=== PATIENT | male | born 1985 | race African-American/Black ===

== ENCOUNTER 2017-01-29 23:26 | Emergency (ER) | payer OTHER ==
[2017-01-30 00:17] VITALS: BP 148/81; PULSE 97; TEMP 98.7; BMI 33.0
[2017-01-30] MEDS ORDERED: SODIUM CHLORIDE 1,000 ML IV STA (00:37)
[2017-01-30 01:52] LABS: BASOPHIL 0.9 % (0-2.0); EOSINOPHIL 5.3 % (0-4.5); MCHC 33.1 g/dl (32.0-35.9); MEAN CELL VOLUME 84.7 fl (80-96); NEUTROPHILS 61.1 % (42.8-82.8); PLATELET COUNT 224 K/MM3 (134-434); RDW 14.7 % (11.9-15.9); WHITE BLOOD COUNT 8.6 K/mm3 (4.0-10.0)
[2017-01-30] MEDS ORDERED: HALOPERIDOL LACTATE 5 MG/ML IM ONE (02:27)
[2017-01-30 02:36] LABS: ALBUMIN 3.1 g/dl (3.4-5.0); ALK PHOS 99 U/L (45-117); ANION GAP 7 (8-16); CALCIUM 8.8 mg/dL (8.5-10.1); CO2 28 mmol/L (21-32); GLUCOSE,RANDOM 119 mg/dL (74-106); SGPT/ALT 40 U/L (12-78); TOT PROT 6.5 g/dl (6.4-8.2)
[2017-01-30 02:37] LABS: BILIRUBIN,TOTAL < 0.1 mg/dL (0.2-1.0)
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
[2017-01-30 02:39] LABS: SGOT/AST 56 U/L (15-37)
[2017-01-30] MEDS ORDERED: HALOPERIDOL LACTATE 5 MG/ML ONE (03:50)
[2017-01-30] MEDS ORDERED: LORazepam 2 MG/ML SDV VIAL ONE (04:08)
== END 2017-01-30 07:59 | disposition home or self-care (01) ==
LOC: JER 23:26
PROC: 3E0337Z Introduction of Electrolytic and Water Balance Substance into Peripheral Vein, Percutaneous Approach (ICD-10-PCS; principal; 2017-01-29)
PROC: 3E023GC Introduction of Other Therapeutic Substance into Muscle, Percutaneous Approach (ICD-10-PCS; 2017-01-29)
PROC: 3E023GC Introduction of Other Therapeutic Substance into Muscle, Percutaneous Approach (ICD-10-PCS; 2017-01-29)
PROC: 3E023NZ Introduction of Analgesics, Hypnotics, Sedatives into Muscle, Percutaneous Approach (ICD-10-PCS; 2017-01-29)
DX: F16.10 Hallucinogen abuse, uncomplicated (principal); F17.210 Nicotine dependence, cigarettes, uncomplicated
CPT/HCPCS: 36415; 80053; 85025; 96360; 96372; 99283-25

== ENCOUNTER 2017-04-28 00:06 | Emergency (ER) | payer OTHER ==
[2017-04-28 00:36] VITALS: BMI 33.4
[2017-04-28] MEDS ORDERED: FOLIC ACID INJECTION - 1 MG, THIAMINE HCL 100 MG, MULTIVIT INJECTION ADULT 10 ML in SOD... IVPB ONE (01:02)
--- NOTE | 2017-04-28 01:07 | PDOC ---
Attending Attestation - Resident Resident Name: Kendell Hunter - ED Attending Attestation I have performed the following: I have examined & evaluated the patient, The case was reviewed & discussed with the resident, I agree w/resident's findings & plan, Exceptions are as noted - HPI HPI: 04/28/17 01:02 31-year-old male no known past medical history here from [facility] for a reported overdose. Patient was found the waiting room at [facility] had reportedly used PCP however was found to be somnolent and altered sent to the ED for evaluation. Patient is sleepy here and unable to provide any further history - Physicial Exam PE: 04/28/17 01:06 Patient is sleeping comfortably pupils are pinpoint bilaterally but reactive face is noted for a right pena granulating ulcer like tissue approximately 1 cm x 1 cm with some purulence no surrounding erythema or redness lungs are clear bilaterally heart is regular without any murmurs rubs or gallops abdomen is soft nontender extremities are warm well perfused and atraumatic - Medical Decision Making 04/28/17 01:08 31-year-old male status post unknown overdose differential includes opiate overdose intracranial pathology electrolyte abnormality combined intoxication plan tox screen alcohol level EKG CT head and chest x-ray will reassess patient is more awake and alert
[2017-04-28 01:34] LABS: BASO % 0.9 % (0-2.0); EOS % 4.5 % (0-4.5); MCH 27.8 pg (25.7-33.7); MCHC 32.6 g/dl (32.0-35.9); MEAN CELL VOLUME 85.3 fl (80-96); MEAN PLT VOLUME 10.2 fl (7.5-11.1); NEUT % 59.3 % (42.8-82.8); PLATELET COUNT 232 K/MM3 (134-434); RDW 14.2 % (11.9-15.9); WHITE BLOOD COUNT 9.7 K/mm3 (4.0-10.0)
[2017-04-28 02:05] LABS: ALBUMIN 3.3 g/dl (3.4-5.0); ANION GAP 9 (8-16); BILIRUBIN,TOTAL 0.3 mg/dL (0.2-1.0); CO2 30 mmol/L (21-32); GLUCOSE,RANDOM 89 mg/dL (74-106); SGOT/AST 48 U/L (15-37); SGPT/ALT 46 U/L (12-78); TOT PROT 7.2 g/dl (6.4-8.2)
[2017-04-28 02:06] LABS: ALK PHOS 86 U/L (45-117)
--- NOTE | 2017-04-28 03:40 | PDOC ---
History of Present Illness - General Chief Complaint: Overdose Stated Complaint: OVERDOSE Time Seen by Provider: 04/28/17 00:30 History Source: Patient Exam Limitations: No Limitations - History of Present Illness Initial Comments: 04/28/17 06:29 31M with pmh of PCP and benzodiazepine abuse sent from [facility] "for eval of change in ms/oversedation. responding to pain stimuli .upon initial arrival states using pcp. tox + pcp, tca, thc, benzo" Patient completely lethargic on arrive, pinpoint pupils, no signs of trauma, cardiovascularly stable, normal RR. Past History - Past Medical History Allergies/Adverse Reactions: Allergies Allergy/AdvReac Type Severity Reaction Status Date / Time No Known Allergies Allergy Verified 01/29/17 23:54 Home Medications: Ambulatory Orders NK [No Known Home Medication] 01/30/17 - Immunization History Td Vaccination: Yes Immunization Up to Date: Yes - Suicide/Smoking/Psychosocial Hx Smoking Status: Yes Smoking History: Unknown if ever smoked Have you smoked in the past 12 months: Yes Number of Cigarettes Smoked Daily: 5 Hx Alcohol Use: (unknown) Drug/Substance Use Hx: (PCP) Substance Use Type: None Review of Systems - Review of Systems Able to Perform ROS?: No (lethargic) *Physical Exam - Vital Signs Last Vital Signs Temp Pulse Resp BP Pulse Ox 98.4 F 89 18 148/107 93 L 04/28/17 00:32 04/28/17 00:32 04/28/17 00:32 04/28/17 00:32 04/28/17 00:32 - Physical Exam General Appearance: Yes: Intoxicated HEENT: positive: Other (pinpoint pupils, reactive to light) Neck: positive: Other (5cm zone under the chin of exposed dermis, folliculitis) Respiratory/Chest: positive: Lungs Clear, Normal Breath Sounds. negative: Chest Tender, Respiratory Distress, Rapid RR Cardiovascular: positive: Regular Rhythm, Regular Rate Gastrointestinal/Abdominal: positive: Normal Bowel Sounds. negative: Flat Musculoskeletal: positive: Normal Inspection Extremity: positive: Normal Capillary Refill, Normal Inspection Integumentary: positive: Normal Color Neurologic: negative: Fully Oriented, Alert, Normal Mood/Affect, Normal Response ED Treatment Course - LABORATORY CBC & Chemistry Diagram: 04/28/17 01:00 04/28/17 01:00 - ADDITIONAL ORDERS Additional order review: Laboratory Results 04/28/17 01:00 Sodium 140 Potassium 3.8 Chloride 101 Carbon Dioxide 30 Anion Gap 9 BUN 13 Creatinine 1.0 Creat Clearance w eGFR > 60 Random Glucose 89 D Calcium 9.0 Total Bilirubin 0.3 D AST 48 H ALT 46 Alkaline Phosphatase 86 Total Protein 7.2 Albumin 3.3 L 04/28/17 01:00 RBC 4.68 MCV 85.3 MCHC 32.6 RDW 14.2 MPV 10.2 D Neutrophils % 59.3 Lymphocytes % 26.6 Monocytes % 8.7 Eosinophils % 4.5 Basophils % 0.9 Medical Decision Making - Medical Decision Making 04/28/17 06:56 31M sent to the ED from [facility] for overdose. Labs and urine tox sent. Urine positive for cannabis, benzos and PCP. Patient woke up during straight catheter insertion. Seemingly fine, not slurring his speech, able to ambulate normally and asking for wound care of his chin. Claims he does pcp and snaps out of it all the time. Patient eloped. *DC/Admit/Observation/Transfer Diagnosis at time of Disposition: Overdose - Discharge Dispostion Disposition: ELOPED Condition at time of disposition: Improved - Referrals - Patient Instructions - Post Discharge Activity
[2017-04-28 05:07] VITALS: BP 110/73; PULSE 80; TEMP 98.7
[2017-04-28 05:10] LABS: URINE APPEARANCE CLEAR; URINE BILIRUBIN NEGATIVE (NEGATIVE); URINE BLOOD NEGATIVE (NEGATIVE); URINE COLOR YELLOW; URINE GLUCOSE (UA) NEGATIVE (NEGATIVE); URINE KETONE NEGATIVE (NEGATIVE); URINE LEUK ESTERASE NEGATIVE (NEGATIVE); URINE NITRITE NEGATIVE (NEGATIVE); URINE UROBILINOGEN 4.0 E.U/dl mg/dL (0.2-1.0)
[2017-04-28 05:11] LABS: URINE PROTEIN 1+ (NEGATIVE)
[2017-04-28 05:17] LABS: URINE MUCUS RARE; URINE RBC <1 /hpf (0-3); URINE WBC 2 /hpf (3-5)
[2017-04-28] MEDS ORDERED: CEPHALEXIN MONOHYDRATE 250 MG CAPSULE (FP) PO ONE (05:19)
[2017-04-28 05:22] LABS: URINE MARIJUANA THC POSITIVE ng/ml (CUTOFF=50)
[2017-04-28] MEDS ORDERED: CEPHALEXIN MONOHYDRATE 250 MG CAPSULE (FP) ONE (05:41)
[2017-04-28 11:38] LABS: URINE LEUK ESTERASE Negative (NEGATIVE)
--- NOTE | 2017-05-04 13:24 | EKG ---
Test Reason : Blood Pressure : / mmHG Vent. Rate : 088 BPM Atrial Rate : 088 BPM P-R Int : 166 ms QRS Dur : 090 ms QT Int : 404 ms P-R-T Axes : 053 018 039 degrees QTc Int : 488 ms POOR DATA QUALITY, INTERPRETATION MAY BE ADVERSELY AFFECTED NORMAL SINUS RHYTHM POSSIBLE LEFT ATRIAL ENLARGEMENT PROLONGED QT ABNORMAL ECG NO PREVIOUS ECGS AVAILABLE Confirmed by GINETTE DINH, TAM ([id number]) on 05/04/2017 1:24:04 PM Referred By: Confirmed By:TAM PENG MD
== END 2017-04-28 06:00 | disposition left against medical advice (07) ==
LOC: JER 00:06
DX: F16.10 Hallucinogen abuse, uncomplicated (principal); F12.10 Cannabis abuse, uncomplicated; F13.10 Sedative, hypnotic or anxiolytic abuse, uncomplicated
CPT/HCPCS: 36415; 70450-TC; 80053; 80307; 81003; 81015; 85025; 93005; 93010; 99283-25

== ENCOUNTER 2020-01-09 11:14 | Emergency (ER) | payer OTHER ==
[2020-01-09 11:38] VITALS: BMI 33.4
--- NOTE | 2020-01-09 12:39 | PDOC ---
History of Present Illness - General Chief Complaint: Pain Stated Complaint: SWOLLEN TESTICLES Time Seen by Provider: 01/09/20 11:56 History Source: Patient - History of Present Illness Timing/Duration: other Past History - Medical History Allergies/Adverse Reactions: Allergies Allergy/AdvReac Type Severity Reaction Status Date / Time No Known Allergies Allergy Verified 01/29/17 23:54 Home Medications: Ambulatory Orders NK [No Known Home Medication] 01/30/17 COPD: No - Immunization History Td Vaccination: Yes Immunization Up to Date: Yes - Psycho-Social/Smoking History Smoking Status: Yes Smoking History: Never smoked Have you smoked in the past 12 months: Yes Number of Cigarettes Smoked Daily: 5 Information on smoking cessation initiated: No - Substance Abuse Hx (Audit-C & DAST Scrn) How often the patient has a drink containing alcohol: Never Score: In Men: 4 or > Positive; In Women: 3 or > Positive: 0 Screen Result (Pos requires Nsg. Audit-10AR): Negative In the last yr the pt used illegal drug/Rx for NonMed reason: No Score: Yes response is considered Positive: 0 Screen Result (Positive result requires Nsg. DAST-10): Negative Review of Systems - Review of Systems Constitutional: No: Chills, Fever Respiratory: No: Cough, Shortness of Breath, Wheezing Cardiac (ROS): No: Chest Pain ABD/GI: No: Nausea, Vomiting, Abdominal cramping : No: Dysuria, Flank Pain, Hematuria *Physical Exam - Vital Signs Last Vital Signs Temp Pulse Resp BP Pulse Ox 97.8 F 95 H 17 150/72 99 01/09/20 11:34 01/09/20 11:34 01/09/20 11:34 01/09/20 11:34 01/09/20 11:34 - Physical Exam General Appearance: Yes: Appropriately Dressed. No: Apparent Distress HEENT: positive: Normal Voice Neck: positive: Supple Respiratory/Chest: positive: Lungs Clear, Normal Breath Sounds. negative: Respiratory Distress Cardiovascular: positive: Regular Rate, S1, S2 Gastrointestinal/Abdominal: positive: Soft. negative: Tender Extremity: positive: Pedal Edema (3+ edema to b/l LE that extends to testes) Integumentary: positive: Dry, Warm Neurologic: positive: Fully Oriented, Alert, Normal Mood/Affect ED Treatment Course - LABORATORY CBC & Chemistry Diagram: 01/09/20 13:00 01/09/20 13:00 Medical Decision Making - Medical Decision Making 01/09/20 12:32 34 yo M, h/o polysubstance abuse, HTN, hyperthyroid on methimazole, on eliquis but not certain why he is on meds, here w/ edema to b/l LE and testicles. Pt states he was admitted to [facility] several days ago for palpitations related to his hyperthyroid. States he did have lower extremity swelling while hospitalized but not as severe and was being treated with IV lasix. States he had no testicular swelling at the time. Patient states he left AMA yesterday because he had a court date. States he is currently taking metoprolol, methimazo le, lasix and eliquis. Denies any chest pain, SOB, cough, nausea, vomiting fever or chills. Per staff at [facility], patient presented to their ER with palpitations and chest tightness and found to be in A.fib. Patient was admitted to the ICU for thyroid storm but per ICU staff, patient never came on to the floor as patient left AMA from the ER. No echo was performed prior to patient signing out. Per staff patient has a history of poor compliance see exam S/p admission for thyroid storm at [facility] after presenting with chest pain and palpitation and found to be in new onset A.fib and started on lasix for bilateral lower extremity edema, left AMA yesterday and now here with worsening edema that has since extended to the thigh and now includes testicle Currently on eliquis, methimazole and BB but compliance an issue No cards/resp sxs at this time Pt stable w/ 3+ pitting edema to b/l LE that extends to testicles which is markedly swollen -ekg -labs -cxr -IV lasix -anticipate admission 01/09/20 13:41 Concern for thyroid storm at this time given TSH of 0.01 with rapid A. fib to 131 and anasarca, free T4 pending. HR since improved with IV and p.o. Cardizem. Given IV lasix. Will treat for storm w/ BB if HR increases, methimazole and steroids as/w Dr Wu. Will also get ultrasound of scrotum at this time given worsening swelling while in ED. Patient signed out to KARUNA Hollins pending further work-up and management, to also get endocrine consult and arrange admission. Discharge - Discharge Information Problems reviewed: Yes Clinical Impression/Diagnosis: H/O hyperthyroidism, Anasarca Afib Qualifiers: Atrial fibrillation type: unspecified Qualified Code(s): I48.91 - Unspecified atrial fibrillation Thyroid storm Qualifiers: Thyrotoxicosis type: other Qualified Code(s): E05.81 - Other thyrotoxicosis with thyrotoxic crisis or storm CHF (congestive heart failure) Qualifiers: Heart failure type: other Qualified Code(s): I50.9 - Heart failure, unspecified Condition: Fair Disposition: TRANSFER ACUTE CARE/OTHER HOSP - Admission Yes - Follow up/Referral - Patient Discharge Instructions - Post Discharge Activity
[2020-01-09 13:20] LABS: BASO % 0.4 % (0-2.0); EOS % 2.9 % (0-4.5); HEMATOCRIT 40.1 % (35.4-49); HEMOGLOBIN 12.8 GM/dL (11.7-16.9); LYMPH % 29.9 % (8-40); MCH 25.3 pg (25.7-33.7); MONO % 16.8 % (3.8-10.2); PLATELET COUNT 182 K/MM3 (134-434); RBC 5.07 M/mm3 (4.00-5.60); RDW 16.7 % (11.9-15.9); WHITE BLOOD COUNT 8.8 K/mm3 (4.0-10.0)
[2020-01-09 13:21] LABS: PH,URINE 5.5 (5.0-8.0); URINE APPEARANCE CLEAR; URINE BILIRUBIN NEGATIVE (NEGATIVE); URINE COLOR YELLOW; URINE GLUCOSE (UA) NEGATIVE (NEGATIVE); URINE KETONE NEGATIVE (NEGATIVE); URINE LEUK ESTERASE NEGATIVE (NEGATIVE); URINE NITRITE NEGATIVE (NEGATIVE); URINE PROTEIN NEGATIVE (NEGATIVE); URINE UROBILINOGEN 0.2 mg/dL (0.2-1.0)
[2020-01-09] MEDS ORDERED: FUROSEMIDE 40 MG/4 ML INJECTABLE VIAL IVPUSH ONE (13:24)
[2020-01-09] MEDS ORDERED: FUROSEMIDE 40 MG/4 ML INJECTABLE VIAL ONE (13:57)
[2020-01-09] MEDS ORDERED: dilTIAZem HCL 30 MG TABLET PO ONE (14:06)
[2020-01-09] MEDS ORDERED: dilTIAZem HCL 50 MG/10 ML - 10 ML VIAL IVPUSH ONE ×2 (14:06→14:24)
[2020-01-09] MEDS ORDERED: dilTIAZem HCL 30 MG TABLET ONE (14:09)
[2020-01-09] MEDS ORDERED: dilTIAZem HCL 125 MG/25 ML - 25 ML VIAL ONE (14:09)
[2020-01-09 14:19] LABS: ALBUMIN 2.4 g/dl (3.4-5.0); ALK PHOS 203 U/L (45-117); ANION GAP 7 MMOL/L (8-16); BILIRUBIN,TOTAL 0.7 mg/dL (0.2-1); BLOOD UREA NITROGEN 20.6 mg/dL (7-18); CALCIUM 8.2 mg/dL (8.5-10.1); CHLORIDE 106 mmol/L (98-107); CO2 23 mmol/L (21-32); CREATININE 0.8 mg/dL (0.55-1.3); GLUCOSE,RANDOM 95 mg/dL (74-106); POTASSIUM 4.3 mmol/L (3.5-5.1); SGOT/AST 42 U/L (15-37); SGPT/ALT 60 U/L (13-61); SODIUM 136 mmol/L (136-145); TOT PROT 6.4 g/dl (6.4-8.2)
[2020-01-09 14:49] LABS: COCAINE, UR NEGATIVE ng/ml (CUTOFF=300); OPIATES, URI NEGATIVE ng/ml (CUTOFF=300); URINE BARBITURATES NEGATIVE ng/ml (CUTOFF=200)
[2020-01-09 14:51] LABS: METHADONE, UR NEGATIVE ng/ml (CUTOFF=300); URINE AMPHETAMINES NEGATIVE ng/ml (CUTOFF=500); URINE BENZODIAZEPINES NEGATIVE ng/ml (CUTOFF=200)
[2020-01-09 15:03] LABS: PHENCYCLIDINE,URINE POSITIVE ng/ml (CUTOFF=25)
[2020-01-09 15:19] LABS: N-TERMINAL BNP 1639.6 pg/ml (5-125)
[2020-01-09] MEDS ORDERED: morphine CARPU-JECT 4 MG/1 ML DISP.SYRIN IVPUSH ONE (15:55)
[2020-01-09] MEDS ORDERED: HYDROCORTISONE SOD SUCCINATE 100 MG/2 ML VIAL IVPUSH ONE (16:12)
[2020-01-09] MEDS ORDERED: METHIMAZOLE 10 MG TABLET (FP) PO ONE (16:12)
--- NOTE | 2020-01-09 16:33 | PDOC ---
*Physical Exam - Vital Signs Last Vital Signs Temp Pulse Resp BP Pulse Ox 97.8 F 100 H 15 109/86 99 01/09/20 11:34 01/09/20 14:29 01/09/20 14:29 01/09/20 14:29 01/09/20 14:29 - Physical Exam 01/09/20 17:00 - Physical Exam General Appearance: Nourished, Appropriately Dressed, No Distress HEENT: EOMI, Normal Voice, Hearing Grossly Normal Neck: Supple, No Lymphadenopathy (R), No Lymphadenopathy (L), No Rigidity, No Decreased range of motion Respiratory/Chest: Lungs Clear, Normal Breath Sounds. No Respiratory Distress, No Accessory Muscle Use; speaking in full and complete sentences. Rales appreciated at the bilateral bases. Cardiovascular: Regular Rhythm, Regular Rate, S1, S2 Gastrointestinal/Abdominal: Normal Bowel Sounds, Soft. Non-tender, No Guarding, No Rebound, No Rigidity : Significant scrotal edema appreciated. No erythema or drainage appreciated. No tenderness to palpation. Unable to palpate testicles secondary to the edema. Musculoskeletal: Normal Inspection. No Decreased Range of Motion Extremity: Normal Capillary Refill, Normal Inspection Integumentary: Normal Color, Dry. No Rash Neurologic: education liaison II-XII NML intact, Fully Oriented, Alert, Normal Mood/Affect, Normal Response ED Treatment Course - LABORATORY CBC & Chemistry Diagram: 01/09/20 13:00 01/09/20 13:00 - ADDITIONAL ORDERS Additional order review: Laboratory Results 01/09/20 01/09/20 01/09/20 13:00 13:00 13:00 Sodium 136 Potassium 4.3 Chloride 106 Carbon Dioxide 23 Anion Gap 7 L BUN 20.6 H Creatinine 0.8 Est GFR (CKD-EPI)AfAm 134.14 Est GFR (CKD-EPI)NonAf 115.74 Random Glucose 95 Calcium 8.2 L Total Bilirubin 0.7 AST 42 H ALT 60 Alkaline Phosphatase 203 H Creatine Kinase 50 Troponin I < 0.02 B-Natriuretic Peptide 1639.6 H Total Protein 6.4 Albumin 2.4 L TSH 0.01 L Resin T3 Uptake 42.3 H Urine Color Yellow Urine Appearance Clear Urine pH 5.5 Ur Specific [place] 1.004 L Urine Protein Negative Urine Glucose (UA) Negative Urine Ketones Negative Urine Blood Negative Urine Nitrite Negative Urine Bilirubin Negative Urine Urobilinogen 0.2 Ur Leukocyte Esterase Negative Opiates Screen Negative Methadone Screen Negative Barbiturate Screen Negative Phencyclidine Screen Positive A* Ur Amphetamines Screen Negative MDMA (Ecstasy) Screen Negative Benzodiazepines Screen Negative Cocaine Screen Negative U Marijuana (THC) Screen Negative 01/09/20 13:00 RBC 5.07 MCV 79.0 L MCHC 32.0 RDW 16.7 H MPV 10.0 Neutrophils % 50.0 Lymphocytes % 29.9 Monocytes % 16.8 H D Eosinophils % 2.9 Basophils % 0.4 - Medications Given in the ED: ED Medications Discontinued Medications Generic Name Dose Route Start Last Admin Trade Name Freq PRN Reason Stop Dose Admin Diltiazem HCl 20 mg 01/09/20 14:06 01/09/20 14:29 Cardizem Injection - IVPUSH 01/09/20 14:07 Not Given ONCE ONE Diltiazem HCl 30 mg 01/09/20 14:06 01/09/20 14:15 Cardizem - PO 01/09/20 14:07 30 mg ONCE ONE Administration Diltiazem HCl 10 mg 01/09/20 14:24 01/09/20 14:15 Cardizem Injection - IVPUSH 01/09/20 14:25 10 mg ONCE ONE Administration Furosemide 40 mg 01/09/20 13:24 01/09/20 14:04 Lasix Injection - IVPUSH 01/09/20 13:25 40 mg ONCE ONE Administration Medical Decision Making - Medical Decision Making 01/09/20 16:31 Assessment: This patient was endorsed to me by KARUNA Nation for continuation of care. The patient is a 34-year-old male with a history of hypothyroidism hypertension and polysubstance abuse (drugs of choice are PCP and alcohol) who presents to the ED with concern for thyroid storm. He initially presented in rapid A. fib and was given Cardizem p.o. and IV. The patient was complaining of worsening edema to the bilateral lower extremities which has now extended into the groin involving the scrotum. He denies any significant shortness of breath at this time. Plan: -Patient is currently at ultrasound for further evaluation of scrotal edema -If patient continues to have a rapid heart rate, will treat with metoprolol which is consistent for thyroid storm treatment -1 dose of of methimazole ordered by KARUNA Nation -Hydrocortisone ordered by [place] -Patient to be placed on front desk monitor once he returns from ultrasound -Labs show virtually nonexistent TSH levels and BNP elevated to 1600. Patient has already been given Lasix 40 mg in the ED. -Will reassess 01/09/20 17:01 Patient's blood pressure is 86/50 when he came back from ultrasound. 500 cc bolus of NS ordered. Patient is pending his ultrasound results. He is speaking in full sentences, alert and awake. He denies any significant complaints at this time. 01/09/20 17:55 Patient's ultrasound is negative for acute pathology. The patient's blood pressure is now 114/60. His heart rate ranges from 90 to 100 bpm. The patient is to be admitted for thyroid storm and for further evaluation and treatment. Hospitalist paged. 01/09/20 18:04 Pt endorsed to the hospitalist resident Calli and the patient will be admitted to Dr. Sanchez's service. 01/09/20 19:04 After further investigation, the hospitalist, Dr. Sanchez feels the patient is better served at a tertiary care facility where he can be seen on an urgent basis by endocrinology as we do not have an on-call endocrinology service here. [facility] has been contacted for transfer. 19:10 Spoke with Isaura at [facility] transfer center. The patient has been autoaccepted to Dr. Donnelly's service of the medicine team. Pending endorsement to the medicine team at [facility]. 01/09/20 19:[address] Donnelly at [facility] and endorsed the patient to him. He will see the patient upon arrival in the ED. He accepts the patient to his service. The patient is stable for transfer. Discharge - Discharge Information Problems reviewed: Yes Clinical Impression/Diagnosis: H/O hyperthyroidism, Anasarca Afib Qualifiers: Atrial fibrillation type: unspecified Qualified Code(s): I48.91 - Unspecified atrial fibrillation Thyroid storm Qualifiers: Thyrotoxicosis type: other Qualified Code(s): E05.81 - Other thyrotoxicosis with thyrotoxic crisis or storm CHF (congestive heart failure) Qualifiers: Heart failure type: other Qualified Code(s): I50.9 - Heart failure, unspecified Condition: Fair Disposition: TRANSFER ACUTE CARE/OTHER HOSP - Follow up/Referral - Patient Discharge Instructions - Post Discharge Activity - Transfer to Acute Care Facility Receiving Facility Name: [facility] [place] [address] Accepting Physician:: Dr. Donnelly
[2020-01-09] MEDS ORDERED: ONDANSETRON 4 MG/2 ML VIAL IVPUSH ONE (16:39)
[2020-01-09] MEDS ORDERED: SODIUM CHLORIDE 0.9% 500 ML INFUS.BAG IV ONE (17:00)
[2020-01-09] MEDS ORDERED: HYDROCORTISONE SOD SUCCINATE 2 ML ONE (17:11)
--- NOTE | 2020-01-09 19:47 | HOSP ---
Physical Examination Vital Signs: Vital Signs Temperature 98.5 F 01/09/20 18:23 Pulse Rate 97 H 01/09/20 18:23 Respiratory Rate 24 H 01/09/20 18:23 Blood Pressure 114/58 L 01/09/20 18:23 O2 Sat by Pulse Oximetry (%) 99 01/09/20 18:23 Labs: CBC, BMP 01/09/20 13:00 01/09/20 13:00 Hospitalist Encounter Assessment: My attending and I spoke about the case and given hypotension, tachycardia, fluid overload, pt would benefit from ICU level care. There are not enough beds and staff available in the ICU at the moment, so the pt should be transferred to a tertiary care center. Dr. Sanchez and I spoke to ED attendings Dr. Wu and Dr. Carr about our concerns, and that there should be an ED to ED transfer. We are not accepting the pt for admission. Visit type - Emergency Visit Emergency Visit: Yes Care time: The patient presented to the Emergency Department on the above date and was hospitalized for further evaluation of their emergent condition. - New Patient This patient is new to me today: Yes Date on this admission: 01/09/20 - Critical Care Critical Care patient: No
[2020-01-09 20:02] VITALS: BP 110/62; PULSE 98; TEMP 98.1
== END 2020-01-09 21:35 | disposition short-term general hospital (02) ==
LOC: JER 11:14 → UNDOADMIN 18:25 → JERBED 18:25
PROC: 3E033GC Introduction of Other Therapeutic Substance into Peripheral Vein, Percutaneous Approach (ICD-10-PCS; principal; 2020-01-09)
DX: E05.81 Other thyrotoxicosis with thyrotoxic crisis or storm (principal); I48.91 Unspecified atrial fibrillation; I50.9 Heart failure, unspecified
CPT/HCPCS: 36415; 71045-TC-FY; 76870-TC; 80053; 80307; 81003; 82550; 83880; 84439; 84443; 84479; 84484; 85025; 99285-25; U0003

== ENCOUNTER 2020-07-25 20:15 | Emergency (ER) | payer OTHER ==
[2020-07-25] MEDS ORDERED: levETIRAcetam 500 MG/5 ML INJECTION VIAL IVPB ONE ×2 (20:51)
[2020-07-25 20:58] VITALS: TEMP 98.3; BMI 27.0
[2020-07-25 21:15] VITALS: BP 122/83; PULSE 114
== END 2020-07-25 21:15 | disposition short-term general hospital (02) ==
LOC: JER 20:15
PROC: 3E033GC Introduction of Other Therapeutic Substance into Peripheral Vein, Percutaneous Approach (ICD-10-PCS; principal; 2020-07-25)
DX: I63.9 Cerebral infarction, unspecified (principal)
CPT/HCPCS: 70450-TC; 70496-TC; 70498-TC; 93005; 93010; 99291; Q9967

== ENCOUNTER 2020-08-19 22:54 | Inpatient (IN) | payer OTHER ==
[2020-08-19 23:05] VITALS: BMI 24.4
[2020-08-20 00:47] LABS: VENOUS BASE EXCESS -3.7 mmol/L (-2-2); VENOUS O2 SATURATION 64.3 % (70-80); VENOUS PCO2 42.8 mmHg (38-52); VENOUS PH 7.331 (7.310-7.410)
[2020-08-20 00:48] LABS: BASO % 0.4 % (0-2.0); HEMATOCRIT 50.5 % (35.4-49); HEMOGLOBIN 16.2 GM/dL (11.7-16.9); LYMPH % 18.3 % (8-40); MCH 27.9 pg (25.7-33.7); MCHC 32.1 g/dl (32.0-35.9); MEAN CELL VOLUME 86.9 fl (80-96); MEAN PLT VOLUME 9.5 fl (7.5-11.1); NEUT % 73.3 % (42.8-82.8); PLATELET COUNT 283 K/MM3 (134-434); RBC 5.81 M/mm3 (4.00-5.60); RDW 23.2 % (11.9-15.9); WHITE BLOOD COUNT 7.3 K/mm3 (4.0-10.0)
[2020-08-20 01:03] LABS: ALBUMIN 1.9 g/dl (3.4-5.0); BLOOD UREA NITROGEN 44.6 mg/dL (7-18); MAGNESIUM 2.2 mg/dL (1.8-2.4)
[2020-08-20 01:06] LABS: CREATININE 2.2 mg/dL (0.55-1.3); PHOSPHOROUS 4.4 mg/dL (2.5-4.9)
[2020-08-20 01:07] LABS: BILIRUBIN,TOTAL 0.7 mg/dL (0.2-1); TOT PROT 6.6 g/dl (6.4-8.2)
[2020-08-20 01:10] LABS: N-TERMINAL BNP 23401.5 pg/ml (5-125)
[2020-08-20 01:42] LABS: ANISOCYTOSIS 1+; MACROCYTOSIS 0; OVALOCYTE 1+; PLATELET ESTIMATE NORMAL; TARGET CELLS 1+; TEAR DROP CELLS 1+
[2020-08-20 02:59] LABS: EPI CELLS >36 /uL (0-25.1); HYALINE CASTS 6 /uL (0-3.1); PH,URINE 5.5 (5.0-8.0); URINE APPEARANCE CLOUDY; URINE BACTERIA 65 /uL (0-1359); URINE BILIRUBIN NEGATIVE (NEGATIVE); URINE COLOR YELLOW; URINE GLUCOSE (UA) NEGATIVE (NEGATIVE); URINE KETONE NEGATIVE (NEGATIVE); URINE LEUK ESTERASE 1+ (NEGATIVE); URINE NITRITE NEGATIVE (NEGATIVE); URINE PROTEIN 4+ (NEGATIVE); URINE RBC 36 /uL (0-23.9); URINE UROBILINOGEN 0.2 mg/dL (0.2-1.0); URINE WBC 281 /uL (0-25.8)
[2020-08-20 03:05] LABS: COCAINE, UR NEGATIVE ng/ml (CUTOFF=300); URINE AMPHETAMINES NEGATIVE ng/ml (CUTOFF=500); URINE BARBITURATES NEGATIVE ng/ml (CUTOFF=200); URINE BENZODIAZEPINES NEGATIVE ng/ml (CUTOFF=200)
[2020-08-20 03:06] LABS: METHADONE, UR NEGATIVE ng/ml (CUTOFF=300); OPIATES, URI NEGATIVE ng/ml (CUTOFF=300)
[2020-08-20] MEDS ORDERED: FUROSEMIDE 40 MG/4 ML INJECTABLE VIAL IVPUSH ONE (03:42)
[2020-08-20] MEDS ORDERED: FUROSEMIDE 40 MG/4 ML INJECTABLE VIAL ONE ×2 (04:17→13:06)
[2020-08-20 04:27] LABS: PHENCYCLIDINE,URINE POSITIVE ng/ml (CUTOFF=25)
[2020-08-20] MEDS: METHIMAZOLE 5 MG TABLET (FP) PO SCH ×3 (06:23→22:52)
[2020-08-20 10:32] LABS: BASO % 0.5 % (0-2.0); HEMOGLOBIN 14.4 GM/dL (11.7-16.9); LYMPH % 27.7 % (8-40); MCH 28.1 pg (25.7-33.7); MCHC 32.8 g/dl (32.0-35.9); MEAN CELL VOLUME 85.6 fl (80-96); MEAN PLT VOLUME 9.7 fl (7.5-11.1); MONO % 8.6 % (3.8-10.2); NEUT % 63.2 % (42.8-82.8); PLATELET COUNT 251 K/MM3 (134-434); RBC 5.14 M/mm3 (4.00-5.60); RDW 22.4 % (11.9-15.9); WHITE BLOOD COUNT 7.5 K/mm3 (4.0-10.0)
[2020-08-20 10:43] LABS: CALCIUM 8.4 mg/dL (8.5-10.1)
[2020-08-20 10:45] LABS: BLOOD UREA NITROGEN 51.3 mg/dL (7-18)
[2020-08-20 10:46] LABS: ALBUMIN 1.6 g/dl (3.4-5.0)
[2020-08-20 10:47] LABS: CREATININE 2.2 mg/dL (0.55-1.3)
[2020-08-20 10:49] LABS: PHOSPHOROUS 4.7 mg/dL (2.5-4.9); TOT PROT 5.4 g/dl (6.4-8.2)
[2020-08-20 10:50] LABS: BILIRUBIN,TOTAL 0.6 mg/dL (0.2-1)
[2020-08-20] MEDS: APIXABAN 5 MG TABLET PO SCH ×2 (11:09→22:52)
[2020-08-20] MEDS: MAGNESIUM OXIDE 400 MG TABLET (FP) PO SCH (11:09)
[2020-08-20] MEDS ORDERED: APIXABAN 5 MG TABLET ONE (11:10)
[2020-08-20] MEDS ORDERED: MAGNESIUM OXIDE 400 MG TABLET (FP) ONE (11:10)
[2020-08-20] MEDS: FUROSEMIDE 40 MG/4 ML INJECTABLE VIAL IVPUSH SCH (13:41)
[2020-08-20] MEDS ORDERED: METOPROLOL TARTRATE 5 MG/5 ML VIAL ONE (18:27)
[2020-08-20] MEDS: METOPROLOL TARTRATE 5 MG/5 ML VIAL IVPUSH PRN (18:36)
[2020-08-20] MEDS ORDERED: PT OWN MED DRAWER 7, Y5N ONE (21:45)
[2020-08-21] MEDS: FUROSEMIDE 40 MG/4 ML INJECTABLE VIAL IVPUSH SCH ×2 (06:22→13:17)
[2020-08-21] MEDS: METHIMAZOLE 5 MG TABLET (FP) PO SCH ×3 (06:23→22:00)
[2020-08-21] MEDS: MAGNESIUM OXIDE 400 MG TABLET (FP) PO SCH (10:14)
[2020-08-21] MEDS: APIXABAN 5 MG TABLET PO SCH ×2 (10:14→22:00)
[2020-08-21] MEDS ORDERED: LORazepam 1 MG TABLET PO PRN (10:37)
[2020-08-21] MEDS: PANTOPRAZOLE 40 MG TABLET PO SCH (12:51)
[2020-08-21] MEDS ORDERED: PT OWN MED DRAWER 7, Y5N ONE ×2 (13:02→13:36)
[2020-08-21 14:35] LABS: CALCIUM 8.5 mg/dL (8.5-10.1)
[2020-08-21 14:36] LABS: ALBUMIN 1.6 g/dl (3.4-5.0); BLOOD UREA NITROGEN 53.4 mg/dL (7-18); MAGNESIUM 1.9 mg/dL (1.8-2.4)
[2020-08-21 14:39] LABS: CREATININE 2.5 mg/dL (0.55-1.3)
[2020-08-21 14:41] LABS: BILIRUBIN,TOTAL 0.6 mg/dL (0.2-1); TOT PROT 5.6 g/dl (6.4-8.2)
[2020-08-21 15:52] LABS: BASO % 0.5 % (0-2.0); HEMATOCRIT 45.5 % (35.4-49); HEMOGLOBIN 14.8 GM/dL (11.7-16.9); LYMPH % 23.8 % (8-40); MCH 28.1 pg (25.7-33.7); MCHC 32.6 g/dl (32.0-35.9); MEAN CELL VOLUME 86.2 fl (80-96); MEAN PLT VOLUME 9.6 fl (7.5-11.1); MONO % 10.6 % (3.8-10.2); NEUT % 65.1 % (42.8-82.8); PLATELET COUNT 288 K/MM3 (134-434); RBC 5.28 M/mm3 (4.00-5.60); RDW 22.6 % (11.9-15.9)
[2020-08-21] MEDS: ISOSORBIDE MONONITRATE 30 MG TAB.SR.24H (FP) PO SCH (17:00)
[2020-08-21] MEDS: hydrALAZINE HCL 10 MG TABLET PO SCH (22:00)
[2020-08-21] MEDS: METOPROLOL TARTRATE 5 MG/5 ML VIAL IVPUSH PRN (22:01)
[2020-08-22] MEDS: FUROSEMIDE 40 MG/4 ML INJECTABLE VIAL IVPUSH SCH (06:56)
[2020-08-22] MEDS: hydrALAZINE HCL 10 MG TABLET PO SCH (06:56)
[2020-08-22] MEDS: METHIMAZOLE 5 MG TABLET (FP) PO SCH (06:56)
[2020-08-22 08:08] VITALS: BP 123/86; PULSE 136; TEMP 98.3
[2020-08-22] MEDS: ISOSORBIDE MONONITRATE 30 MG TAB.SR.24H (FP) PO SCH (09:18)
[2020-08-22] MEDS: PANTOPRAZOLE 40 MG TABLET PO SCH (09:18)
[2020-08-22] MEDS: MAGNESIUM OXIDE 400 MG TABLET (FP) PO SCH (09:19)
[2020-08-22] MEDS: APIXABAN 5 MG TABLET PO SCH (09:19)
[2020-08-25 16:27] LABS: ATYPICAL pANCA <1:20 titer (Neg:<1:20); C-ANCA <1:20 titer (Neg:<1:20)
== END 2020-08-22 09:51 | disposition left against medical advice (07) | DRG 194 ==
LOC: JER 22:54 → JERBED 08-20 02:51 → J4W 08-20 20:10
PROVIDERS: ADMIT Hospitalist; ATTEND Nurse Practitioner Family
DX: I13.0 Hypertensive heart and chronic kidney disease with heart failure and stage 1 through stage 4 chronic kidney disease, or unspecified chronic kidney disease (principal); F12.90 Cannabis use, unspecified, uncomplicated; E05.90 Thyrotoxicosis, unspecified without thyrotoxic crisis or storm; F16.10 Hallucinogen abuse, uncomplicated; I50.23 Acute on chronic systolic (congestive) heart failure; I48.92 Unspecified atrial flutter; N17.9 Acute kidney failure, unspecified; I69.351 Hemiplegia and hemiparesis following cerebral infarction affecting right dominant side; I42.9 Cardiomyopathy, unspecified; I48.91 Unspecified atrial fibrillation; N18.9 Chronic kidney disease, unspecified
CPT/HCPCS: 36415; 70450-TC; 71045-TC-FY; 76775-TC; 80053; 80061; 80307; 81003; 82550; 82570; 82803; 82962; 83036; 83520; 83721; 83735; 83880; 83883; 84100; 84155; 84156; 84165; 84436; 84443; 84484; 85025; 86038; 86225; 86256; 93005; 93010; 93308; 97116-GP; 97162-GP; 99285-25; C9803; U0003; U0005

== ENCOUNTER 2020-08-28 22:46 | Inpatient (IN) | payer OTHER ==
[2020-08-28 22:50] VITALS: BMI 26.4
[2020-08-28] MEDS ORDERED: SODIUM CHLORIDE 0.9% 500 ML INFUS.BAG IV ONE (23:16)
[2020-08-28] MEDS ORDERED: diazePAM CARPU-JECT 10 MG/2 ML DISP.SYRIN IVPUSH ONE (23:28)
[2020-08-28] MEDS ORDERED: diazePAM CARPU-JECT 10 MG/2 ML DISP.SYRIN ONE (23:43)
[2020-08-29 00:23] LABS: BASO % 0.6 % (0-2.0); HEMATOCRIT 44.3 % (35.4-49); HEMOGLOBIN 14.5 GM/dL (11.7-16.9); LYMPH % 29.5 % (8-40); MCH 28.3 pg (25.7-33.7); MCHC 32.6 g/dl (32.0-35.9); MEAN CELL VOLUME 86.8 fl (80-96); MEAN PLT VOLUME 9.5 fl (7.5-11.1); NEUT % 59.9 % (42.8-82.8); PLATELET COUNT 293 K/MM3 (134-434); RBC 5.11 M/mm3 (4.00-5.60)
[2020-08-29 00:38] LABS: CHLORIDE 107 mmol/L (98-107); SODIUM 138 mmol/L (136-145)
[2020-08-29 00:40] LABS: CALCIUM 8.5 mg/dL (8.5-10.1)
[2020-08-29 00:41] LABS: ALBUMIN 1.5 g/dl (3.4-5.0); ANION GAP 10 MMOL/L (8-16); CO2 20 mmol/L (21-32); GLUCOSE,RANDOM 89 mg/dL (74-106)
[2020-08-29 00:44] LABS: CREATININE 2.1 mg/dL (0.55-1.3); SGOT/AST 47 U/L (15-37); SGPT/ALT 27 U/L (13-61)
[2020-08-29 00:45] LABS: BILIRUBIN,TOTAL 0.4 mg/dL (0.2-1); TOT PROT 5.8 g/dl (6.4-8.2)
[2020-08-29 00:49] LABS: N-TERMINAL BNP 15102.1 pg/ml (5-125)
[2020-08-29 01:07] LABS: ALK PHOS 144 U/L (45-117)
[2020-08-29 04:14] LABS: INR 1.19 (0.83-1.09); PROTHROMBIN TIME (PATIENT) 14.6 SEC (9.7-13.0)
[2020-08-29] MEDS ORDERED: METOPROLOL TARTRATE 5 MG/5 ML VIAL IVPUSH ONE (04:30)
[2020-08-29 05:22] LABS: URINE AMPHETAMINES NEGATIVE ng/ml (CUTOFF=500); URINE BENZODIAZEPINES NEGATIVE ng/ml (CUTOFF=200)
[2020-08-29 05:23] LABS: METHADONE, UR NEGATIVE ng/ml (CUTOFF=300); OPIATES, URI NEGATIVE ng/ml (CUTOFF=300)
[2020-08-29 05:32] LABS: COCAINE, UR NEGATIVE ng/ml (CUTOFF=300); PHENCYCLIDINE,URINE POSITIVE ng/ml (CUTOFF=25); URINE BARBITURATES NEGATIVE ng/ml (CUTOFF=200)
[2020-08-29 05:34] LABS: BASO % 0.7 % (0-2.0); HEMATOCRIT 44.3 % (35.4-49); HEMOGLOBIN 14.7 GM/dL (11.7-16.9); LYMPH % 31.9 % (8-40); MCH 28.6 pg (25.7-33.7); MCHC 33.1 g/dl (32.0-35.9); MEAN CELL VOLUME 86.4 fl (80-96); MEAN PLT VOLUME 8.9 fl (7.5-11.1); MONO % 8.6 % (3.8-10.2); NEUT % 58.8 % (42.8-82.8); PLATELET COUNT 268 K/MM3 (134-434); RBC 5.13 M/mm3 (4.00-5.60); WHITE BLOOD COUNT 8.3 K/mm3 (4.0-10.0)
[2020-08-29 05:50] LABS: CHLORIDE 109 mmol/L (98-107); SODIUM 142 mmol/L (136-145)
[2020-08-29 05:52] LABS: ALBUMIN 1.5 g/dl (3.4-5.0); ANION GAP 9 MMOL/L (8-16); BLOOD UREA NITROGEN 41.2 mg/dL (7-18); CALCIUM 8.2 mg/dL (8.5-10.1); CO2 24 mmol/L (21-32); GLUCOSE,RANDOM 84 mg/dL (74-106); MAGNESIUM 1.8 mg/dL (1.8-2.4)
[2020-08-29 05:55] LABS: SGOT/AST 26 U/L (15-37); SGPT/ALT 21 U/L (13-61)
[2020-08-29 05:56] LABS: PHOSPHOROUS 4.7 mg/dL (2.5-4.9)
[2020-08-29 05:57] LABS: BILIRUBIN,TOTAL 0.4 mg/dL (0.2-1); TOT PROT 5.4 g/dl (6.4-8.2)
[2020-08-29 05:58] LABS: ALK PHOS 131 U/L (45-117)
[2020-08-29] MEDS ORDERED: FUROSEMIDE 40 MG/4 ML INJECTABLE VIAL IVPUSH SCH (06:00)
[2020-08-29 06:18] LABS: ANISOCYTOSIS 0; MACROCYTOSIS 0; PLATELET ESTIMATE NORMAL; ROULEAU 2+
[2020-08-29] MEDS ORDERED: FUROSEMIDE 40 MG/4 ML INJECTABLE VIAL ONE ×2 (06:18→11:21)
[2020-08-29] MEDS: METHIMAZOLE 5 MG TABLET (FP) PO SCH ×2 (09:09→23:11)
[2020-08-29] MEDS: APIXABAN 5 MG TABLET PO SCH ×2 (11:00→23:12)
[2020-08-29] MEDS: FUROSEMIDE 40 MG/4 ML INJECTABLE VIAL IVPUSH SCH (11:00)
[2020-08-29] MEDS ORDERED: LORazepam 2 MG/ML SDV VIAL IM ONE (11:07)
[2020-08-29] MEDS ORDERED: LORazepam 2 MG/ML SDV VIAL ONE ×2 (11:09→11:18)
[2020-08-29] MEDS ORDERED: APIXABAN 5 MG TABLET ONE (11:20)
[2020-08-30] MEDS: METHIMAZOLE 5 MG TABLET (FP) PO SCH ×3 (06:00→21:05)
[2020-08-30] MEDS: APIXABAN 5 MG TABLET PO SCH ×2 (10:16→21:05)
[2020-08-30] MEDS: FUROSEMIDE 40 MG/4 ML INJECTABLE VIAL IVPUSH SCH (10:17)
[2020-08-30] MEDS ORDERED: ACETAMINOPHEN 1000 MG/100 ML VIAL (NON FORMULARY) IVPB PRN (10:50)
[2020-08-30] MEDS: LORazepam 2 MG/ML SDV VIAL IVPUSH PRN (20:40)
[2020-08-31] MEDS: METHIMAZOLE 5 MG TABLET (FP) PO SCH (06:26)
[2020-08-31 07:00] VITALS: TEMP 98
[2020-08-31] MEDS: LORazepam 2 MG/ML SDV VIAL IVPUSH PRN (08:15)
[2020-08-31 08:20] LABS: BASO % 0.2 % (0-2.0); HEMATOCRIT 41.6 % (35.4-49); HEMOGLOBIN 13.5 GM/dL (11.7-16.9); LYMPH % 29.9 % (8-40); MCH 28.6 pg (25.7-33.7); MCHC 32.5 g/dl (32.0-35.9); MEAN PLT VOLUME 9.5 fl (7.5-11.1); MONO % 10.5 % (3.8-10.2); NEUT % 59.4 % (42.8-82.8); PLATELET COUNT 270 K/MM3 (134-434); RBC 4.73 M/mm3 (4.00-5.60); RDW 21.9 % (11.9-15.9); WHITE BLOOD COUNT 6.4 K/mm3 (4.0-10.0)
[2020-08-31 08:44] LABS: ALBUMIN 1.4 g/dl (3.4-5.0); CALCIUM 8.1 mg/dL (8.5-10.1); MAGNESIUM 1.8 mg/dL (1.8-2.4)
[2020-08-31 08:47] LABS: CREATININE 1.9 mg/dL (0.55-1.3)
[2020-08-31 08:49] LABS: TOT PROT 5.3 g/dl (6.4-8.2)
[2020-08-31 08:51] LABS: BILIRUBIN,TOTAL 0.3 mg/dL (0.2-1)
[2020-08-31] MEDS: APIXABAN 5 MG TABLET PO SCH (09:46)
[2020-08-31 13:28] VITALS: BP 130/84; PULSE 135
[2020-08-31] MEDS ORDERED: FUROSEMIDE 40 MG TABLET (FP) PO ONE (14:00)
[2020-09-01] MEDS ORDERED: FUROSEMIDE 40 MG TABLET (FP) PO SCH (10:00)
== END 2020-08-31 13:32 | disposition left against medical advice (07) | DRG 194 ==
LOC: JER 22:46 → JERBED 08-29 03:14 → OBSVTOIN 08-29 03:44 → J4W 08-29 20:44
PROVIDERS: ADMIT Internal Medicine; ATTEND Nurse Practitioner Acute Care
DX: I13.0 Hypertensive heart and chronic kidney disease with heart failure and stage 1 through stage 4 chronic kidney disease, or unspecified chronic kidney disease (principal); I48.92 Unspecified atrial flutter; N18.9 Chronic kidney disease, unspecified; I50.23 Acute on chronic systolic (congestive) heart failure; I48.91 Unspecified atrial fibrillation; G81.94 Hemiplegia, unspecified affecting left nondominant side; E05.90 Thyrotoxicosis, unspecified without thyrotoxic crisis or storm; I25.10 Atherosclerotic heart disease of native coronary artery without angina pectoris; R45.1 Restlessness and agitation; F16.229 Hallucinogen dependence with intoxication, unspecified; N17.9 Acute kidney failure, unspecified; R07.9 Chest pain, unspecified
CPT/HCPCS: 36415; 70450-TC; 71046-TC-FY; 80053; 80307; 82550; 83036; 83735; 83880; 84100; 84439; 84443; 84484; 85025; 85379; 85610; 85730; 93005; 93010; 99285-25; C9803; G0378; U0003; U0005

== ENCOUNTER 2020-09-01 21:03 | Inpatient (IN) | payer OTHER ==
[2020-09-01 21:16] VITALS: BMI 26.4
[2020-09-01] MEDS ORDERED: FUROSEMIDE 40 MG/4 ML INJECTABLE VIAL IVPUSH ONE (21:44)
[2020-09-01] MEDS ORDERED: FUROSEMIDE 40 MG/4 ML INJECTABLE VIAL ONE (22:09)
[2020-09-01 22:22] LABS: BASO % 1.2 % (0-2.0); EOS % 0.1 % (0-4.5); HEMATOCRIT 47.5 % (35.4-49); HEMOGLOBIN 15.4 GM/dL (11.7-16.9); LYMPH % 22.4 % (8-40); MCH 28.3 pg (25.7-33.7); MCHC 32.5 g/dl (32.0-35.9); MEAN CELL VOLUME 87.1 fl (80-96); MEAN PLT VOLUME 9.2 fl (7.5-11.1); MONO % 8.6 % (3.8-10.2); NEUT % 67.7 % (42.8-82.8); PLATELET COUNT 335 K/MM3 (134-434); RBC 5.45 M/mm3 (4.00-5.60); RDW 21.5 % (11.9-15.9); WHITE BLOOD COUNT 8.6 K/mm3 (4.0-10.0)
[2020-09-01 22:35] LABS: INR 1.26 (0.83-1.09); PROTHROMBIN TIME (PATIENT) 15.4 SEC (9.7-13.0)
[2020-09-01 22:38] LABS: ACTIVATED PTT 30.6 SECONDS (25.2-36.5)
[2020-09-01 22:45] LABS: BLOOD UREA NITROGEN 44.1 mg/dL (7-18); CALCIUM 8.5 mg/dL (8.5-10.1); MAGNESIUM 1.9 mg/dL (1.8-2.4)
[2020-09-01 22:49] LABS: CREATININE 2.1 mg/dL (0.55-1.3); PHOSPHOROUS 4.6 mg/dL (2.5-4.9)
[2020-09-01 22:50] LABS: BILIRUBIN,TOTAL 0.6 mg/dL (0.2-1); TOT PROT 6.5 g/dl (6.4-8.2)
[2020-09-01 22:57] LABS: ALBUMIN 1.8 g/dl (3.4-5.0)
[2020-09-01 23:23] LABS: ANISOCYTOSIS 2+; MACROCYTOSIS 1+; PLATELET ESTIMATE NORMAL
[2020-09-02] MEDS ORDERED: MAG HYDROX/AL HYDROX/SIMETH 30 ML UNIT-DOSE CUP ONE (01:21)
[2020-09-02] MEDS ORDERED: METOPROLOL TARTRATE 25 MG TABLET (FP) PO ONE (01:51)
[2020-09-02] MEDS ORDERED: LORazepam 1 MG TABLET PO PRN (01:57)
[2020-09-02] MEDS ORDERED: PANTOPRAZOLE 40 MG TABLET PO ONE (02:24)
[2020-09-02] MEDS ORDERED: METOPROLOL TARTRATE 25 MG TABLET (FP) ONE (02:30)
[2020-09-02] MEDS: METHIMAZOLE 5 MG TABLET (FP) PO SCH ×3 (06:54→23:24)
[2020-09-02 07:16] LABS: BASO % 0.4 % (0-2.0); HEMATOCRIT 41.6 % (35.4-49); HEMOGLOBIN 13.8 GM/dL (11.7-16.9); LYMPH % 22.7 % (8-40); MCH 28.9 pg (25.7-33.7); MCHC 33.2 g/dl (32.0-35.9); MEAN PLT VOLUME 9.5 fl (7.5-11.1); MONO % 11.9 % (3.8-10.2); PLATELET COUNT 289 K/MM3 (134-434); RBC 4.78 M/mm3 (4.00-5.60); RDW 21.5 % (11.9-15.9); WHITE BLOOD COUNT 6.4 K/mm3 (4.0-10.0)
[2020-09-02 07:41] LABS: BLOOD UREA NITROGEN 48.1 mg/dL (7-18)
[2020-09-02 07:42] LABS: ALBUMIN 1.5 g/dl (3.4-5.0); CALCIUM 8.3 mg/dL (8.5-10.1)
[2020-09-02 07:43] LABS: MAGNESIUM 1.9 mg/dL (1.8-2.4)
[2020-09-02 07:46] LABS: PHOSPHOROUS 4.4 mg/dL (2.5-4.9)
[2020-09-02 07:47] LABS: BILIRUBIN,TOTAL 0.3 mg/dL (0.2-1); TOT PROT 5.5 g/dl (6.4-8.2)
[2020-09-02 07:49] LABS: METHADONE, UR NEGATIVE ng/ml (CUTOFF=300); OPIATES, URI NEGATIVE ng/ml (CUTOFF=300)
[2020-09-02 07:50] LABS: COCAINE, UR NEGATIVE ng/ml (CUTOFF=300); URINE AMPHETAMINES NEGATIVE ng/ml (CUTOFF=500); URINE BENZODIAZEPINES NEGATIVE ng/ml (CUTOFF=200)
[2020-09-02 07:59] LABS: PHENCYCLIDINE,URINE POSITIVE ng/ml (CUTOFF=25); URINE BARBITURATES NEGATIVE ng/ml (CUTOFF=200)
[2020-09-02] MEDS ORDERED: APIXABAN 5 MG TABLET ONE ×2 (11:33→23:25)
[2020-09-02] MEDS ORDERED: MULTIVITAMINS (DAILY MVI) TABLET (FP) ONE (11:33)
[2020-09-02] MEDS ORDERED: THIAMINE HCL 100 MG TABLET (FP) ONE (11:34)
[2020-09-02] MEDS ORDERED: FOLIC ACID 1 MG TABLET (FP) ONE (11:34)
[2020-09-02] MEDS: APIXABAN 5 MG TABLET PO SCH ×2 (11:39→23:24)
[2020-09-02] MEDS: FOLIC ACID 1 MG TABLET (FP) PO SCH (11:39)
[2020-09-02] MEDS: MULTIVITAMINS (DAILY MVI) TABLET (FP) PO SCH (11:39)
[2020-09-02] MEDS: AMINO ACIDS/PROTEIN HYDROLYS 30 ML LIQUID.PKT PO SCH ×2 (11:39→23:24)
[2020-09-02] MEDS: THIAMINE HCL 100 MG TABLET (FP) PO SCH (11:39)
[2020-09-02] MEDS ORDERED: LORazepam 1 MG TABLET ONE (17:46)
[2020-09-02] MEDS: LORazepam 1 MG TABLET PO PRN (17:56)
[2020-09-03] MEDS ORDERED: PT OWN MED DRAWER 7, Y5N ONE ×3 (05:41→21:05)
[2020-09-03] MEDS: METHIMAZOLE 5 MG TABLET (FP) PO SCH ×3 (06:43→21:18)
[2020-09-03] MEDS: AMINO ACIDS/PROTEIN HYDROLYS 30 ML LIQUID.PKT PO SCH ×2 (08:56→17:09)
[2020-09-03] MEDS: THIAMINE HCL 100 MG TABLET (FP) PO SCH (09:01)
[2020-09-03] MEDS: FOLIC ACID 1 MG TABLET (FP) PO SCH (09:01)
[2020-09-03] MEDS: MULTIVITAMINS (DAILY MVI) TABLET (FP) PO SCH (09:01)
[2020-09-03] MEDS: APIXABAN 5 MG TABLET PO SCH ×2 (09:01→21:18)
[2020-09-03 09:17] LABS: BASO % 0.4 % (0-2.0); HEMATOCRIT 44.7 % (35.4-49); HEMOGLOBIN 14.6 GM/dL (11.7-16.9); LYMPH % 31.9 % (8-40); MCH 28.6 pg (25.7-33.7); MCHC 32.7 g/dl (32.0-35.9); MEAN CELL VOLUME 87.5 fl (80-96); MEAN PLT VOLUME 9.5 fl (7.5-11.1); MONO % 9.5 % (3.8-10.2); NEUT % 58.2 % (42.8-82.8); PLATELET COUNT 312 K/MM3 (134-434); RBC 5.11 M/mm3 (4.00-5.60); RDW 21.2 % (11.9-15.9); WHITE BLOOD COUNT 6.6 K/mm3 (4.0-10.0)
[2020-09-03 10:13] LABS: CALCIUM 8.4 mg/dL (8.5-10.1)
[2020-09-03 10:14] LABS: ALBUMIN 1.6 g/dl (3.4-5.0); BLOOD UREA NITROGEN 44.2 mg/dL (7-18)
[2020-09-03] MEDS ORDERED: METOPROLOL TARTRATE 5 MG/5 ML VIAL IVPB ONE (10:16)
[2020-09-03 10:17] LABS: BILIRUBIN,TOTAL 0.3 mg/dL (0.2-1); CREATININE 2.1 mg/dL (0.55-1.3); TOT PROT 6.1 g/dl (6.4-8.2)
[2020-09-03] MEDS ORDERED: DIGOXIN 0.25 MG TABLET (FP) PO ONE (11:51)
[2020-09-03 12:47] LABS: EPI CELLS 28 /uL (0-25.1); HYALINE CASTS 2 /uL (0-3.1); PH,URINE 5.5 (5.0-8.0); URINE APPEARANCE CLEAR; URINE BACTERIA 8 /uL (0-1359); URINE BILIRUBIN NEGATIVE (NEGATIVE); URINE COLOR YELLOW; URINE GLUCOSE (UA) NEGATIVE (NEGATIVE); URINE KETONE NEGATIVE (NEGATIVE); URINE LEUK ESTERASE TRACE (NEGATIVE); URINE NITRITE NEGATIVE (NEGATIVE); URINE PROTEIN 3+ (NEGATIVE); URINE RBC 18 /uL (0-23.9); URINE UROBILINOGEN 0.2 mg/dL (0.2-1.0); URINE WBC 66 /uL (0-25.8)
[2020-09-03] MEDS: DIGOXIN 0.25 MG TABLET (FP) PO SCH ×2 (17:12→23:00)
[2020-09-03] MEDS: LORazepam 1 MG TABLET PO PRN (21:18)
[2020-09-04] MEDS ORDERED: LORazepam 0.5 MG TABLET PO PRN
[2020-09-04] MEDS ORDERED: MELATONIN 5 MG TABLETS PO ONE (02:05)
[2020-09-04] MEDS: METHIMAZOLE 5 MG TABLET (FP) PO SCH ×3 (06:04→21:06)
[2020-09-04] MEDS: DIGOXIN 0.25 MG TABLET (FP) PO SCH (06:04)
[2020-09-04] MEDS: AMINO ACIDS/PROTEIN HYDROLYS 30 ML LIQUID.PKT PO SCH ×2 (08:22→16:38)
[2020-09-04] MEDS: THIAMINE HCL 100 MG TABLET (FP) PO SCH (09:16)
[2020-09-04] MEDS: FOLIC ACID 1 MG TABLET (FP) PO SCH (09:16)
[2020-09-04] MEDS: APIXABAN 5 MG TABLET PO SCH ×2 (09:16→21:06)
[2020-09-04] MEDS: MULTIVITAMINS (DAILY MVI) TABLET (FP) PO SCH (09:16)
[2020-09-04 11:11] LABS: BASO % 0.3 % (0-2.0); HEMATOCRIT 41.5 % (35.4-49); HEMOGLOBIN 13.7 GM/dL (11.7-16.9); LYMPH % 24.4 % (8-40); MCH 28.5 pg (25.7-33.7); MCHC 32.9 g/dl (32.0-35.9); MEAN CELL VOLUME 86.5 fl (80-96); MEAN PLT VOLUME 9.4 fl (7.5-11.1); MONO % 11.2 % (3.8-10.2); NEUT % 64.1 % (42.8-82.8); PLATELET COUNT 314 K/MM3 (134-434); RBC 4.79 M/mm3 (4.00-5.60); WHITE BLOOD COUNT 5.8 K/mm3 (4.0-10.0)
[2020-09-04 11:35] LABS: CALCIUM 8.4 mg/dL (8.5-10.1)
[2020-09-04 11:37] LABS: ALBUMIN 1.5 g/dl (3.4-5.0); BLOOD UREA NITROGEN 45.2 mg/dL (7-18); MAGNESIUM 1.8 mg/dL (1.8-2.4)
[2020-09-04 11:40] LABS: BILIRUBIN,TOTAL 0.4 mg/dL (0.2-1); CREATININE 1.8 mg/dL (0.55-1.3); TOT PROT 5.5 g/dl (6.4-8.2)
[2020-09-04] MEDS: FUROSEMIDE 40 MG TABLET (FP) PO SCH (12:05)
[2020-09-04] MEDS ORDERED: PT OWN MED DRAWER 7, Y5N ONE ×2 (13:22→20:44)
[2020-09-04] MEDS ORDERED: METOPROLOL TARTRATE 50 MG TABLET (FP) PO ONE (15:15)
[2020-09-04] MEDS: LORazepam 1 MG TABLET PO PRN (21:06)
[2020-09-04] MEDS ORDERED: FAMOTIDINE 20 MG TABLET PO ONE (23:49)
[2020-09-05] MEDS ORDERED: METOPROLOL TARTRATE 5 MG/5 ML VIAL IVPUSH ONE (03:35)
[2020-09-05] MEDS: METHIMAZOLE 5 MG TABLET (FP) PO SCH ×2 (06:01→21:54)
[2020-09-05] MEDS: AMINO ACIDS/PROTEIN HYDROLYS 30 ML LIQUID.PKT PO SCH ×2 (08:31→17:01)
[2020-09-05] MEDS: THIAMINE HCL 100 MG TABLET (FP) PO SCH (09:43)
[2020-09-05] MEDS: MULTIVITAMINS (DAILY MVI) TABLET (FP) PO SCH (09:43)
[2020-09-05] MEDS: APIXABAN 5 MG TABLET PO SCH ×2 (09:44→21:54)
[2020-09-05] MEDS: FUROSEMIDE 40 MG TABLET (FP) PO SCH (09:44)
[2020-09-05] MEDS: FOLIC ACID 1 MG TABLET (FP) PO SCH (09:44)
[2020-09-05 11:15] LABS: BASO % 0.5 % (0-2.0); HEMATOCRIT 38.3 % (35.4-49); HEMOGLOBIN 12.6 GM/dL (11.7-16.9); LYMPH % 19.5 % (8-40); MCH 28.4 pg (25.7-33.7); MCHC 32.9 g/dl (32.0-35.9); MEAN CELL VOLUME 86.2 fl (80-96); MEAN PLT VOLUME 8.9 fl (7.5-11.1); MONO % 10.6 % (3.8-10.2); NEUT % 69.4 % (42.8-82.8); PLATELET COUNT 284 K/MM3 (134-434); RBC 4.44 M/mm3 (4.00-5.60); RDW 20.4 % (11.9-15.9); WHITE BLOOD COUNT 7.1 K/mm3 (4.0-10.0)
[2020-09-05 11:40] LABS: ALBUMIN 1.4 g/dl (3.4-5.0); BLOOD UREA NITROGEN 39.2 mg/dL (7-18)
[2020-09-05 11:41] LABS: CALCIUM 7.6 mg/dL (8.5-10.1)
[2020-09-05 11:43] LABS: MAGNESIUM 1.7 mg/dL (1.8-2.4)
[2020-09-05 11:45] LABS: BILIRUBIN,TOTAL 0.6 mg/dL (0.2-1); CREATININE 1.7 mg/dL (0.55-1.3); TOT PROT 5.1 g/dl (6.4-8.2)
[2020-09-05] MEDS ORDERED: MAGNESIUM OXIDE 400 MG TABLET (FP) PO ONE (12:01)
[2020-09-05] MEDS ORDERED: PT OWN MED DRAWER 7, Y5N ONE (21:15)
[2020-09-05] MEDS ORDERED: MAG HYDROX/AL HYDROX/SIMETH 30 ML UNIT-DOSE CUP PO ONE (22:53)
[2020-09-05] MEDS: LORazepam 1 MG TABLET PO PRN (23:03)
[2020-09-06] MEDS ORDERED: PT OWN MED DRAWER 7, Y5N ONE ×2 (09:06→22:13)
[2020-09-06] MEDS: AMINO ACIDS/PROTEIN HYDROLYS 30 ML LIQUID.PKT PO SCH ×2 (09:48→17:13)
[2020-09-06] MEDS: FUROSEMIDE 40 MG TABLET (FP) PO SCH (09:48)
[2020-09-06] MEDS: METHIMAZOLE 5 MG TABLET (FP) PO SCH ×2 (09:48→22:16)
[2020-09-06] MEDS: APIXABAN 5 MG TABLET PO SCH ×2 (09:48→22:15)
[2020-09-06] MEDS: MULTIVITAMINS (DAILY MVI) TABLET (FP) PO SCH (09:48)
[2020-09-06] MEDS: THIAMINE HCL 100 MG TABLET (FP) PO SCH (09:48)
[2020-09-06] MEDS: FOLIC ACID 1 MG TABLET (FP) PO SCH (09:48)
[2020-09-06 16:01] LABS: BASO % 0.5 % (0-2.0); HEMATOCRIT 39.6 % (35.4-49); LYMPH % 30.9 % (8-40); MCH 28.5 pg (25.7-33.7); MCHC 32.8 g/dl (32.0-35.9); MEAN PLT VOLUME 9.2 fl (7.5-11.1); MONO % 12.3 % (3.8-10.2); NEUT % 56.3 % (42.8-82.8); PLATELET COUNT 311 K/MM3 (134-434); RBC 4.55 M/mm3 (4.00-5.60); RDW 20.2 % (11.9-15.9); WHITE BLOOD COUNT 5.9 K/mm3 (4.0-10.0)
[2020-09-06 16:21] LABS: CALCIUM 7.5 mg/dL (8.5-10.1)
[2020-09-06 16:22] LABS: ALBUMIN 1.4 g/dl (3.4-5.0); MAGNESIUM 1.7 mg/dL (1.8-2.4)
[2020-09-06 16:25] LABS: CREATININE 1.7 mg/dL (0.55-1.3)
[2020-09-06 16:27] LABS: BILIRUBIN,TOTAL 0.3 mg/dL (0.2-1); TOT PROT 5.5 g/dl (6.4-8.2)
[2020-09-06] MEDS ORDERED: FAMOTIDINE 20 MG TABLET PO ONE (18:35)
[2020-09-06] MEDS: LORazepam 1 MG TABLET PO PRN (22:16)
[2020-09-07] MEDS: AMINO ACIDS/PROTEIN HYDROLYS 30 ML LIQUID.PKT PO SCH ×2 (08:03→17:34)
[2020-09-07] MEDS ORDERED: PT OWN MED DRAWER 7, Y5N ONE ×3 (09:04→22:28)
[2020-09-07] MEDS: LORazepam 1 MG TABLET PO PRN ×2 (09:10→22:30)
[2020-09-07] MEDS: THIAMINE HCL 100 MG TABLET (FP) PO SCH (09:11)
[2020-09-07] MEDS: FOLIC ACID 1 MG TABLET (FP) PO SCH (09:11)
[2020-09-07] MEDS: APIXABAN 5 MG TABLET PO SCH ×2 (09:12→22:29)
[2020-09-07] MEDS: FUROSEMIDE 40 MG TABLET (FP) PO SCH ×2 (09:12→14:54)
[2020-09-07] MEDS: MULTIVITAMINS (DAILY MVI) TABLET (FP) PO SCH (09:12)
[2020-09-07] MEDS: METHIMAZOLE 5 MG TABLET (FP) PO SCH ×2 (09:12→22:29)
[2020-09-07] MEDS ORDERED: MAG HYDROX/AL HYDROX/SIMETH -MYLANTA- ORAL SUSPENSION PO ONE (19:57)
[2020-09-07] MEDS ORDERED: MAG HYDROX/AL HYDROX/SIMETH 30 ML UNIT-DOSE CUP PO ONE (20:15)
[2020-09-08] MEDS: FUROSEMIDE 40 MG TABLET (FP) PO SCH ×2 (05:55→14:36)
[2020-09-08 09:20] LABS: BASO % 0.5 % (0-2.0); HEMATOCRIT 40.4 % (35.4-49); HEMOGLOBIN 13.2 GM/dL (11.7-16.9); LYMPH % 31.5 % (8-40); MCH 28.4 pg (25.7-33.7); MCHC 32.8 g/dl (32.0-35.9); MEAN CELL VOLUME 86.7 fl (80-96); MEAN PLT VOLUME 9.1 fl (7.5-11.1); MONO % 7.7 % (3.8-10.2); NEUT % 60.3 % (42.8-82.8); PLATELET COUNT 320 K/MM3 (134-434); RBC 4.66 M/mm3 (4.00-5.60); RDW 20.3 % (11.9-15.9); WHITE BLOOD COUNT 5.8 K/mm3 (4.0-10.0)
[2020-09-08] MEDS ORDERED: PT OWN MED DRAWER 7, Y5N ONE ×2 (09:31→20:58)
[2020-09-08 10:05] LABS: BLOOD UREA NITROGEN 43.5 mg/dL (7-18)
[2020-09-08 10:09] LABS: ALBUMIN 1.6 g/dl (3.4-5.0); BILIRUBIN,TOTAL 0.4 mg/dL (0.2-1)
[2020-09-08 10:11] LABS: CALCIUM 8.2 mg/dL (8.5-10.1); MAGNESIUM 1.8 mg/dL (1.8-2.4)
[2020-09-08 10:12] LABS: CREATININE 1.6 mg/dL (0.55-1.3)
[2020-09-08 10:13] LABS: TOT PROT 5.8 g/dl (6.4-8.2)
[2020-09-08] MEDS: AMINO ACIDS/PROTEIN HYDROLYS 30 ML LIQUID.PKT PO SCH ×2 (10:33→17:47)
[2020-09-08] MEDS: THIAMINE HCL 100 MG TABLET (FP) PO SCH (10:33)
[2020-09-08] MEDS: MULTIVITAMINS (DAILY MVI) TABLET (FP) PO SCH (10:33)
[2020-09-08] MEDS: FOLIC ACID 1 MG TABLET (FP) PO SCH (10:33)
[2020-09-08] MEDS: METHIMAZOLE 5 MG TABLET (FP) PO SCH ×2 (10:33→21:42)
[2020-09-08] MEDS: APIXABAN 5 MG TABLET PO SCH ×2 (10:33→21:42)
[2020-09-08] MEDS ORDERED: FUROSEMIDE 40 MG/4 ML INJECTABLE VIAL IVPUSH ONE (11:12)
[2020-09-08] MEDS ORDERED: METOPROLOL TARTRATE 5 MG/5 ML VIAL IVPUSH ONE (16:09)
[2020-09-08] MEDS ORDERED: MAG HYDROX/AL HYDROX/SIMETH 30 ML UNIT-DOSE CUP PO ONE (22:02)
[2020-09-08] MEDS ORDERED: METHIMAZOLE 5 MG TABLET (FP) PO SCH (22:49)
[2020-09-09] MEDS: FUROSEMIDE 40 MG TABLET (FP) PO SCH ×2 (06:18→13:54)
[2020-09-09] MEDS: LORazepam 1 MG TABLET PO PRN (06:51)
[2020-09-09] MEDS: AMINO ACIDS/PROTEIN HYDROLYS 30 ML LIQUID.PKT PO SCH (08:40)
[2020-09-09 09:31] LABS: BASO % 0.3 % (0-2.0); EOS % 0.1 % (0-4.5); HEMATOCRIT 40.4 % (35.4-49); HEMOGLOBIN 13.3 GM/dL (11.7-16.9); LYMPH % 25.1 % (8-40); MCH 28.3 pg (25.7-33.7); MCHC 32.8 g/dl (32.0-35.9); MEAN CELL VOLUME 86.3 fl (80-96); MEAN PLT VOLUME 8.6 fl (7.5-11.1); MONO % 8.3 % (3.8-10.2); NEUT % 66.2 % (42.8-82.8); PLATELET COUNT 321 K/MM3 (134-434); RBC 4.68 M/mm3 (4.00-5.60); WHITE BLOOD COUNT 6.4 K/mm3 (4.0-10.0)
[2020-09-09] MEDS: FOLIC ACID 1 MG TABLET (FP) PO SCH (09:57)
[2020-09-09] MEDS: APIXABAN 5 MG TABLET PO SCH (09:57)
[2020-09-09] MEDS: THIAMINE HCL 100 MG TABLET (FP) PO SCH (09:57)
[2020-09-09] MEDS: MULTIVITAMINS (DAILY MVI) TABLET (FP) PO SCH (09:57)
[2020-09-09 10:11] LABS: ALBUMIN 1.7 g/dl (3.4-5.0); BLOOD UREA NITROGEN 38.8 mg/dL (7-18); CALCIUM 8.3 mg/dL (8.5-10.1)
[2020-09-09 10:12] LABS: MAGNESIUM 1.6 mg/dL (1.8-2.4)
[2020-09-09 10:14] LABS: CREATININE 1.5 mg/dL (0.55-1.3)
[2020-09-09 10:15] LABS: BILIRUBIN,TOTAL 0.5 mg/dL (0.2-1)
[2020-09-09 10:16] LABS: TOT PROT 5.9 g/dl (6.4-8.2)
[2020-09-09] MEDS ORDERED: MAGNESIUM OXIDE 400 MG TABLET (FP) PO SCH ×2 (11:30→12:15)
[2020-09-09 15:17] VITALS: BP 116/72; PULSE 104; TEMP 97.7
[2020-09-10] MEDS ORDERED: MAGNESIUM OXIDE 400 MG TABLET (FP) PO SCH (10:00)
== END 2020-09-09 15:20 | disposition home or self-care (01) | DRG 201 ==
LOC: JER 21:03 → JERBED 09-02 00:07 → J4S 09-03 00:29
PROVIDERS: ADMIT Internal Medicine; ATTEND Nurse Practitioner Acute Care
DX: I48.92 Unspecified atrial flutter (principal); N18.9 Chronic kidney disease, unspecified; E05.90 Thyrotoxicosis, unspecified without thyrotoxic crisis or storm; F17.210 Nicotine dependence, cigarettes, uncomplicated; F19.129 Other psychoactive substance abuse with intoxication, unspecified; F10.10 Alcohol abuse, uncomplicated; N50.89 Other specified disorders of the male genital organs; R07.9 Chest pain, unspecified; I50.22 Chronic systolic (congestive) heart failure; I13.0 Hypertensive heart and chronic kidney disease with heart failure and stage 1 through stage 4 chronic kidney disease, or unspecified chronic kidney disease; N17.9 Acute kidney failure, unspecified; E88.09 Other disorders of plasma-protein metabolism, not elsewhere classified; I48.91 Unspecified atrial fibrillation
CPT/HCPCS: 36415; 71045-TC-FY; 76870-TC; 80053; 80307; 81003; 82550; 82553; 82962; 83036; 83735; 84100; 84439; 84443; 84481; 84484; 85025; 85610; 85730; 93005; 93010; 93970-TC; 94010; 99285-25; C9803; U0003; U0005

== ENCOUNTER 2020-09-26 20:30 | Emergency (ER) | payer OTHER ==
[2020-09-26] MEDS ORDERED: NALOXONE HCL 0.4 MG/ML VIAL IVPUSH ONE (21:31)
[2020-09-26] MEDS ORDERED: NALOXONE HCL 0.4 MG/ML VIAL ONE (22:11)
[2020-09-26 22:47] VITALS: BP 128/104; PULSE 95; TEMP 98.3; BMI 23.1
[2020-09-26 22:52] LABS: BASO % 0.4 % (0-2.0); HEMATOCRIT 43.9 % (35.4-49); LYMPH % 10.4 % (8-40); MCH 27.7 pg (25.7-33.7); MCHC 31.9 g/dl (32.0-35.9); MEAN CELL VOLUME 86.7 fl (80-96); MEAN PLT VOLUME 9.4 fl (7.5-11.1); MONO % 9.3 % (3.8-10.2); NEUT % 79.9 % (42.8-82.8); PLATELET COUNT 324 K/MM3 (134-434); RBC 5.06 M/mm3 (4.00-5.60); RDW 16.9 % (11.9-15.9)
[2020-09-26 23:02] LABS: EPI CELLS >36 /uL (0-25.1); HYALINE CASTS 1 /uL (0-3.1); PH,URINE 6.5 (5.0-8.0); URINE APPEARANCE CLEAR; URINE BACTERIA 7 /uL (0-1359); URINE BILIRUBIN NEGATIVE (NEGATIVE); URINE COLOR YELLOW; URINE GLUCOSE (UA) NEGATIVE (NEGATIVE); URINE KETONE NEGATIVE (NEGATIVE); URINE LEUK ESTERASE 1+ (NEGATIVE); URINE NITRITE NEGATIVE (NEGATIVE); URINE PROTEIN 3+ (NEGATIVE); URINE RBC 20 /uL (0-23.9); URINE UROBILINOGEN 0.2 mg/dL (0.2-1.0); URINE WBC 97 /uL (0-25.8)
[2020-09-26 23:03] LABS: URINE BARBITURATES NEGATIVE ng/ml (CUTOFF=200)
[2020-09-26 23:04] LABS: METHADONE, UR NEGATIVE ng/ml (CUTOFF=300); OPIATES, URI NEGATIVE ng/ml (CUTOFF=300); PHENCYCLIDINE,URINE NEGATIVE ng/ml (CUTOFF=25); URINE BENZODIAZEPINES NEGATIVE ng/ml (CUTOFF=200)
[2020-09-26 23:05] LABS: COCAINE, UR NEGATIVE ng/ml (CUTOFF=300); URINE AMPHETAMINES NEGATIVE ng/ml (CUTOFF=500)
[2020-09-26 23:15] LABS: CHLORIDE 104 mmol/L (98-107); SODIUM 139 mmol/L (136-145)
[2020-09-26 23:17] LABS: CALCIUM 8.3 mg/dL (8.5-10.1)
[2020-09-26 23:18] LABS: ALBUMIN 2.5 g/dl (3.4-5.0); ANION GAP 9 MMOL/L (8-16); BLOOD UREA NITROGEN 45.7 mg/dL (7-18); CO2 26 mmol/L (21-32); GLUCOSE,RANDOM 119 mg/dL (74-106)
[2020-09-26 23:21] LABS: CREATININE 1.8 mg/dL (0.55-1.3); SGOT/AST 34 U/L (15-37); SGPT/ALT 28 U/L (13-61)
[2020-09-26 23:22] LABS: BILIRUBIN,TOTAL 0.3 mg/dL (0.2-1); TOT PROT 7.4 g/dl (6.4-8.2)
[2020-09-26 23:24] LABS: ALK PHOS 221 U/L (45-117)
== END 2020-09-27 00:37 | disposition home or self-care (01) ==
LOC: JER 20:30
PROC: 3E033GC Introduction of Other Therapeutic Substance into Peripheral Vein, Percutaneous Approach (ICD-10-PCS; principal; 2020-09-26)
DX: F11.23 Opioid dependence with withdrawal (principal)
CPT/HCPCS: 36415; 71046-TC-FY; 80053; 80307; 81003; 82550; 84484; 85025; 87086; 93005; 93010; 99285-25

== ENCOUNTER 2020-10-16 18:04 | Emergency (ER) | payer OTHER ==
[2020-10-16 18:14] VITALS: BP 135/86; PULSE 94; TEMP 98.1; BMI 23.7
== END 2020-10-16 19:49 | disposition left against medical advice (07) ==
LOC: JERFT 18:04
DX: S09.90XA Unspecified injury of head, initial encounter (principal)
CPT/HCPCS: 70450-TC; 99284-25

== ENCOUNTER 2020-10-17 23:41 | Emergency (ER) | payer OTHER ==
[2020-10-18 00:40] VITALS: BP 146/98; PULSE 89; TEMP 98; BMI 60.5
== END 2020-10-18 03:04 | disposition left against medical advice (07) ==
LOC: JER 23:41
DX: R22.0 Localized swelling, mass and lump, head (principal)
CPT/HCPCS: 99283-25

== ENCOUNTER 2020-10-28 05:26 | Emergency (ER) | payer OTHER ==
[2020-10-28 05:44] VITALS: BP 135/64; PULSE 101; TEMP 98.1; BMI 25.0
== END 2020-10-28 06:02 | disposition left against medical advice (07) ==
LOC: JER 05:26
DX: R07.9 Chest pain, unspecified (principal)
CPT/HCPCS: 93005; 93010; 99283-25

== ENCOUNTER 2020-11-26 01:32 | Observation (INO) | payer OTHER ==
[2020-11-26] MEDS ORDERED: SODIUM CHLORIDE 0.9% 500 ML INFUS.BAG IV ONE (02:51)
[2020-11-26] MEDS ORDERED: ACETAMINOPHEN 1000 MG/100 ML VIAL (NON FORMULARY) IVPB ONE (02:51)
[2020-11-26] MEDS ORDERED: ACETAMINOPHEN INJECTION 100 ML IVPB ONE (03:09)
[2020-11-26 03:40] LABS: BASO % 0.6 % (0-2.0); HEMATOCRIT 36.3 % (35.4-49); HEMOGLOBIN 11.9 GM/dL (11.7-16.9); LYMPH % 19.7 % (8-40); MCH 26.5 pg (25.7-33.7); MCHC 32.7 g/dl (32.0-35.9); MEAN CELL VOLUME 81.1 fl (80-96); MEAN PLT VOLUME 9.1 fl (7.5-11.1); MONO % 14.8 % (3.8-10.2); NEUT % 64.9 % (42.8-82.8); PLATELET COUNT 294 10^3/uL (134-434); RBC 4.47 M/mm3 (4.00-5.60); RDW 16.8 % (11.9-15.9); WHITE BLOOD COUNT 7.8 K/mm3 (4.0-10.0)
[2020-11-26 03:47] LABS: INR 1.03 (0.83-1.09); PROTHROMBIN TIME (PATIENT) 12.7 SEC (9.7-13.0)
[2020-11-26 03:50] LABS: ACTIVATED PTT 33.3 SECONDS (25.2-36.5)
[2020-11-26 04:09] LABS: CHLORIDE 103 mmol/L (98-107); SODIUM 137 mmol/L (136-145)
[2020-11-26 04:11] LABS: ALBUMIN 2.4 g/dl (3.4-5.0); ANION GAP 10 MMOL/L (8-16); BLOOD UREA NITROGEN 29.3 mg/dL (7-18); CALCIUM 8.8 mg/dL (8.5-10.1); CO2 24 mmol/L (21-32); GLUCOSE,RANDOM 93 mg/dL (74-106); LIPASE 88 U/L (73-393); MAGNESIUM 1.6 mg/dL (1.8-2.4)
[2020-11-26 04:15] LABS: BILIRUBIN,TOTAL 0.3 mg/dL (0.2-1); CREATININE 1.5 mg/dL (0.55-1.3); SGOT/AST 40 U/L (15-37); SGPT/ALT 43 U/L (13-61)
[2020-11-26 04:16] LABS: TOT PROT 7.1 g/dl (6.4-8.2)
[2020-11-26 04:18] LABS: ALK PHOS 240 U/L (45-117)
[2020-11-26 04:42] LABS: URINE BARBITURATES NEGATIVE (NEGATIVE); URINE BENZODIAZEPINES NEGATIVE (NEGATIVE)
[2020-11-26 04:43] LABS: COCAINE, UR NEGATIVE (NEGATIVE); METHADONE, UR NEGATIVE (NEGATIVE); OPIATES, URI NEGATIVE (NEGATIVE)
[2020-11-26 04:51] LABS: PHENCYCLIDINE,URINE POSITIVE (NEGATIVE); URINE AMPHETAMINES NEGATIVE (NEGATIVE)
[2020-11-26] MEDS ORDERED: MAGNESIUM OXIDE 400 MG TABLET (FP) PO ONE (09:03)
[2020-11-26] MEDS ORDERED: ACETAMINOPHEN 325 MG TABLET (FP) PO PRN (09:10)
[2020-11-26] MEDS ORDERED: MAGNESIUM OXIDE 400 MG TABLET (FP) ONE (10:02)
[2020-11-26] MEDS ORDERED: FUROSEMIDE 40 MG TABLET (FP) ONE (10:02)
[2020-11-26] MEDS ORDERED: APIXABAN 5 MG TABLET ONE (10:02)
[2020-11-26] MEDS ORDERED: LOSARTAN POTASSIUM 50 MG TABLET ONE (10:03)
[2020-11-26] MEDS ORDERED: BACITRACIN 0.9 GM PACKET ONE (10:03)
[2020-11-26] MEDS: BACITRACIN 15 GM TUBE TOPICAL OINTMENT TP SCH (10:13)
[2020-11-26] MEDS: LOSARTAN POTASSIUM 25 MG TABLET PO SCH (10:13)
[2020-11-26] MEDS: FUROSEMIDE 40 MG TABLET (FP) PO SCH (10:14)
[2020-11-26] MEDS: APIXABAN 5 MG TABLET PO SCH ×2 (10:14→21:53)
[2020-11-26] MEDS ORDERED: ONDANSETRON 4 MG/2 ML VIAL IVPUSH PRN (10:25)
[2020-11-26] MEDS: METHIMAZOLE 10 MG TABLET PO SCH (12:55)
[2020-11-26] MEDS: NICOTINE 14 MG/24 HOURS TOPICAL PATCH TD SCH (12:55)
[2020-11-26] MEDS ORDERED: LORazepam 2 MG/ML SDV VIAL IVPUSH SCH (17:45)
[2020-11-26 17:57] VITALS: BMI 22.1
[2020-11-26] MEDS: LORazepam 2 MG/ML SDV VIAL IVPUSH PRN ×2 (18:17→22:14)
[2020-11-27] MEDS: LORazepam 2 MG/ML SDV VIAL IVPUSH PRN ×3 (03:36→21:24)
[2020-11-27 07:50] LABS: HEMATOCRIT 34.7 % (35.4-49); HEMOGLOBIN 11.4 GM/dL (11.7-16.9); MCH 26.7 pg (25.7-33.7); MCHC 32.7 g/dl (32.0-35.9); MEAN CELL VOLUME 81.6 fl (80-96); MEAN PLT VOLUME 9.3 fl (7.5-11.1); PLATELET COUNT 282 10^3/uL (134-434); RBC 4.25 M/mm3 (4.00-5.60); RDW 16.3 % (11.9-15.9); WHITE BLOOD COUNT 6.2 K/mm3 (4.0-10.0)
[2020-11-27 08:09] LABS: MAGNESIUM 1.6 mg/dL (1.8-2.4)
[2020-11-27 08:10] LABS: ALBUMIN 2.4 g/dl (3.4-5.0); BLOOD UREA NITROGEN 29.8 mg/dL (7-18)
[2020-11-27 08:12] LABS: CREATININE 1.4 mg/dL (0.55-1.3)
[2020-11-27 08:13] LABS: PHOSPHOROUS 3.4 mg/dL (2.5-4.9); TOT PROT 6.7 g/dl (6.4-8.2)
[2020-11-27 08:14] LABS: BILIRUBIN,TOTAL 0.2 mg/dL (0.2-1)
[2020-11-27] MEDS: FUROSEMIDE 40 MG TABLET (FP) PO SCH (09:36)
[2020-11-27] MEDS: APIXABAN 5 MG TABLET PO SCH ×2 (09:36→21:24)
[2020-11-27] MEDS: METHIMAZOLE 10 MG TABLET PO SCH (09:36)
[2020-11-27] MEDS: BACITRACIN 15 GM TUBE TOPICAL OINTMENT TP SCH (09:37)
[2020-11-27] MEDS: LOSARTAN POTASSIUM 25 MG TABLET PO SCH (09:37)
[2020-11-27] MEDS: NICOTINE 14 MG/24 HOURS TOPICAL PATCH TD SCH (09:37)
[2020-11-27] MEDS: MAGNESIUM OXIDE 400 MG TABLET (FP) PO SCH (09:37)
[2020-11-28] MEDS: METHIMAZOLE 10 MG TABLET PO SCH ×2 (06:41→13:37)
[2020-11-28 09:03] LABS: BASO % 0.2 % (0-2.0); HEMATOCRIT 37.6 % (35.4-49); HEMOGLOBIN 12.5 GM/dL (11.7-16.9); LYMPH % 19.4 % (8-40); MCH 27.3 pg (25.7-33.7); MCHC 33.2 g/dl (32.0-35.9); MEAN CELL VOLUME 82.2 fl (80-96); MEAN PLT VOLUME 9.6 fl (7.5-11.1); MONO % 8.1 % (3.8-10.2); NEUT % 72.3 % (42.8-82.8); PLATELET COUNT 333 10^3/uL (134-434); RBC 4.58 M/mm3 (4.00-5.60); RDW 16.2 % (11.9-15.9)
[2020-11-28 09:23] LABS: CALCIUM 9.2 mg/dL (8.5-10.1)
[2020-11-28 09:24] LABS: ALBUMIN 2.5 g/dl (3.4-5.0); BLOOD UREA NITROGEN 29.9 mg/dL (7-18); MAGNESIUM 1.7 mg/dL (1.8-2.4)
[2020-11-28 09:27] LABS: CREATININE 1.4 mg/dL (0.55-1.3)
[2020-11-28 09:28] LABS: BILIRUBIN,TOTAL 0.2 mg/dL (0.2-1); TOT PROT 7.1 g/dl (6.4-8.2)
[2020-11-28] MEDS: LOSARTAN POTASSIUM 25 MG TABLET PO SCH (10:05)
[2020-11-28] MEDS: FUROSEMIDE 40 MG TABLET (FP) PO SCH (10:06)
[2020-11-28] MEDS: MAGNESIUM OXIDE 400 MG TABLET (FP) PO SCH (10:06)
[2020-11-28] MEDS: NICOTINE 14 MG/24 HOURS TOPICAL PATCH TD SCH (10:06)
[2020-11-28] MEDS: APIXABAN 5 MG TABLET PO SCH (10:06)
[2020-11-28] MEDS: BACITRACIN 15 GM TUBE TOPICAL OINTMENT TP SCH (10:06)
[2020-11-28 10:10] VITALS: BP 145/94; PULSE 86; TEMP 97.7
== END 2020-11-28 16:49 | disposition home or self-care (01) ==
LOC: JER 01:32 → JERBED 05:18 → INTOOBSV 05:18 → J4S 18:10
PROVIDERS: ATTEND Nurse Practitioner Family
PROC: 3E033NZ Introduction of Analgesics, Hypnotics, Sedatives into Peripheral Vein, Percutaneous Approach (ICD-10-PCS; principal; 2020-11-26)
PROC: 3E0337Z Introduction of Electrolytic and Water Balance Substance into Peripheral Vein, Percutaneous Approach (ICD-10-PCS; 2020-11-26)
DX: I13.0 Hypertensive heart and chronic kidney disease with heart failure and stage 1 through stage 4 chronic kidney disease, or unspecified chronic kidney disease (principal); E05.90 Thyrotoxicosis, unspecified without thyrotoxic crisis or storm; R55 Syncope and collapse; I48.91 Unspecified atrial fibrillation; Z79.01 Long term (current) use of anticoagulants; N17.9 Acute kidney failure, unspecified; N18.9 Chronic kidney disease, unspecified; F19.10 Other psychoactive substance abuse, uncomplicated; I69.351 Hemiplegia and hemiparesis following cerebral infarction affecting right dominant side; F41.8 Other specified anxiety disorders; R61 Generalized hyperhidrosis; F17.210 Nicotine dependence, cigarettes, uncomplicated; Z29.9 Encounter for prophylactic measures, unspecified
CPT/HCPCS: 36415; 70450-TC; 71045-TC-FY; 80053; 80061; 80307; 82550; 83690; 83721; 83735; 84100; 84439; 84443; 84484; 85025; 85027; 85610; 85730; 93005; 93010; 93880-TC; 96374; 96375; 97116-GP; 97161-GP; 99285-25; C9803; G0378; J0131; U0003; U0005

== ENCOUNTER 2020-12-13 03:14 | Emergency (ER) | payer OTHER ==
[2020-12-13 03:39] VITALS: BP 117/87; PULSE 89; TEMP 98.2; BMI 23.1
== END 2020-12-13 06:29 | disposition left against medical advice (07) ==
LOC: JER 03:14
DX: H57.89 Other specified disorders of eye and adnexa (principal)
CPT/HCPCS: 82962; 99283-25

== ENCOUNTER 2021-04-14 20:32 | Emergency (ER) | payer OTHER ==
[2021-04-14 20:45] VITALS: BP 133/84; PULSE 78; TEMP 98.7; BMI 28.5
== END 2021-04-14 23:00 | disposition home or self-care (01) ==
LOC: JER 20:32
DX: R05.1 Acute cough (principal); R09.81 Nasal congestion; H10.33 Unspecified acute conjunctivitis, bilateral; J06.9 Acute upper respiratory infection, unspecified
CPT/HCPCS: 87804; 99283-25; C9803; U0003; U0005

== ENCOUNTER 2021-04-25 03:21 | Emergency (ER) | payer OTHER ==
[2021-04-25 03:43] VITALS: BMI 26.1
[2021-04-25 10:49] VITALS: BP 131/78; PULSE 87; TEMP 97.8
== END 2021-04-25 10:00 | disposition home or self-care (01) ==
LOC: JER 03:21
DX: F19.929 Other psychoactive substance use, unspecified with intoxication, unspecified (principal)
CPT/HCPCS: 82962; 99283-25

== ENCOUNTER 2021-05-05 15:05 | Emergency (ER) | payer OTHER ==
[2021-05-05 15:20] VITALS: BP 143/76; PULSE 105; TEMP 98.1; BMI 26.4
[2021-05-05] MEDS ORDERED: FAMOTIDINE 20 MG TABLET ONE (18:12)
== END 2021-05-05 18:15 | disposition home or self-care (01) ==
LOC: JERFT 15:05
DX: S92.901A Unspecified fracture of right foot, initial encounter for closed fracture (principal); X50.9XXA Other and unspecified overexertion or strenuous movements or postures, initial encounter
CPT/HCPCS: 73630-TC-RT-FY; 99283-25

== ENCOUNTER 2021-06-13 04:07 | Emergency (ER) | payer OTHER ==
[2021-06-13 04:18] VITALS: BP 148/67; PULSE 109; BMI 52.3
[2021-06-13] MEDS ORDERED: ACETAMINOPHEN 500 MG TABLET (FP) PO ONE (04:37)
[2021-06-13] MEDS ORDERED: ACETAMINOPHEN 325 MG TABLET (FP) ONE (04:43)
== END 2021-06-13 06:19 | disposition left against medical advice (07) ==
LOC: JER 04:07
DX: M84.374A Stress fracture, right foot, initial encounter for fracture (principal); M25.511 Pain in right shoulder; M25.571 Pain in right ankle and joints of right foot; W01.0XXA Fall on same level from slipping, tripping and stumbling without subsequent striking against object, initial encounter
CPT/HCPCS: 70450-TC; 72125-TC; 73030-TC-RT-FY; 73610-TC-RT-FY; 73630-TC-RT-FY; 99285-25

== ENCOUNTER 2021-07-20 10:33 | Inpatient (IN) | payer OTHER ==
[2021-07-20 11:02] VITALS: BMI 23.3
[2021-07-20 14:40] LABS: HEMATOCRIT 38.7 % (35.4-49); HEMOGLOBIN 12.5 GM/dL (11.7-16.9); MCH 26.3 pg (25.7-33.7); MCHC 32.2 g/dl (32.0-35.9); MEAN CELL VOLUME 81.8 fl (80-96); MEAN PLT VOLUME 9.1 fl (7.5-11.1); PLATELET COUNT 309 10^3/uL (134-434); RBC 4.73 M/mm3 (4.00-5.60); RDW 15.5 % (11.9-15.9); WHITE BLOOD COUNT 8.6 K/mm3 (4.0-10.0)
[2021-07-20 14:47] LABS: INR 1.15 (0.83-1.09); PROTHROMBIN TIME (PATIENT) 13.2 SEC (9.7-13.0)
[2021-07-20 14:49] LABS: ACTIVATED PTT 32.5 SECONDS (25.2-36.5)
[2021-07-20 14:51] LABS: BASO % 1.5 % (0-2.0); LYMPH % 23.7 % (8-40); MONO % 9.8 % (3.8-10.2)
[2021-07-20 14:59] LABS: CHLORIDE 109 mmol/L (98-107); SODIUM 138 mmol/L (136-145)
[2021-07-20 15:01] LABS: ALBUMIN 2.5 g/dl (3.4-5.0); ANION GAP 5 MMOL/L (8-16); BLOOD UREA NITROGEN 33.1 mg/dL (7-18); CALCIUM 8.6 mg/dL (8.5-10.1); CO2 24 mmol/L (21-32)
[2021-07-20 15:02] LABS: GLUCOSE,RANDOM 95 mg/dL (74-106)
[2021-07-20 15:05] LABS: CREATININE 2.6 mg/dL (0.55-1.3); SGOT/AST 27 U/L (15-37); SGPT/ALT 38 U/L (13-61)
[2021-07-20 15:06] LABS: BILIRUBIN,TOTAL 0.4 mg/dL (0.2-1); TOT PROT 6.5 g/dl (6.4-8.2)
[2021-07-20 15:07] LABS: ALK PHOS 115 U/L (45-117)
[2021-07-20 15:09] LABS: N-TERMINAL BNP 12593.3 pg/ml (5-125)
[2021-07-20 16:50] LABS: VENOUS BASE EXCESS -7.5 mmol/L (-2-2); VENOUS O2 SATURATION 62.9 % (70-80); VENOUS PCO2 30.4 mmHg (38-52); VENOUS PH 7.358 (7.310-7.410)
[2021-07-20 17:13] LABS: EPI CELLS 5 /uL (0-25.1); HYALINE CASTS 0 /uL (0-3.1); URINE APPEARANCE CLEAR; URINE BACTERIA 7 /uL (0-1359); URINE BILIRUBIN NEGATIVE (NEGATIVE); URINE COLOR YELLOW; URINE GLUCOSE (UA) NEGATIVE (NEGATIVE); URINE KETONE NEGATIVE (NEGATIVE); URINE LEUK ESTERASE NEGATIVE (NEGATIVE); URINE NITRITE NEGATIVE (NEGATIVE); URINE PROTEIN 3+ (NEGATIVE); URINE RBC 17 /uL (0-23.9); URINE UROBILINOGEN 0.2 mg/dL (0.2-1.0); URINE WBC 11 /uL (0-25.8)
[2021-07-20 17:27] LABS: COCAINE, UR NEGATIVE (NEGATIVE); METHADONE, UR NEGATIVE (NEGATIVE); OPIATES, URI NEGATIVE (NEGATIVE); URINE BARBITURATES NEGATIVE (NEGATIVE); URINE BENZODIAZEPINES NEGATIVE (NEGATIVE)
[2021-07-20 17:37] LABS: PHENCYCLIDINE,URINE POSITIVE (NEGATIVE); URINE AMPHETAMINES NEGATIVE (NEGATIVE)
[2021-07-20] MEDS ORDERED: FUROSEMIDE 100 MG/10 ML INJECTABLE VIAL IVPB ONE (17:56)
[2021-07-20] MEDS ORDERED: FUROSEMIDE 40 MG/4 ML INJECTABLE VIAL ONE (18:20)
[2021-07-20] MEDS ORDERED: LORazepam 1 MG TABLET PO PRN (20:46)
[2021-07-20] MEDS ORDERED: FOLIC ACID 1 MG TABLET (FP) ONE (21:31)
[2021-07-20] MEDS ORDERED: THIAMINE HCL 100 MG TABLET (FP) ONE (21:31)
[2021-07-20] MEDS ORDERED: LORazepam 1 MG TABLET ONE (21:32)
[2021-07-20] MEDS: FOLIC ACID 1 MG TABLET (FP) PO SCH (21:51)
[2021-07-20] MEDS: THIAMINE HCL 100 MG TABLET (FP) PO SCH (21:51)
[2021-07-20] MEDS: LORazepam 1 MG TABLET PO SCH (22:35)
[2021-07-21] MEDS ORDERED: LIDOCAINE 5% TOPICAL PATCH TP PRN (03:37)
[2021-07-21] MEDS ORDERED: NICOTINE 21 MG/24 HOURS TOPICAL PATCH TD PRN (03:37)
[2021-07-21] MEDS ORDERED: LORazepam 1 MG TABLET ONE (05:09)
[2021-07-21] MEDS: LORazepam 1 MG TABLET PO SCH ×4 (05:12→23:04)
[2021-07-21 09:03] LABS: BASO % 1.1 % (0-2.0); EOS % 0.1 % (0-4.5); HEMATOCRIT 39.8 % (35.4-49); HEMOGLOBIN 12.8 GM/dL (11.7-16.9); LYMPH % 25.9 % (8-40); MCH 26.3 pg (25.7-33.7); MCHC 32.1 g/dl (32.0-35.9); MEAN CELL VOLUME 82.1 fl (80-96); MEAN PLT VOLUME 9.3 fl (7.5-11.1); MONO % 9.9 % (3.8-10.2); PLATELET COUNT 311 10^3/uL (134-434); RBC 4.85 M/mm3 (4.00-5.60); RDW 14.9 % (11.9-15.9); WHITE BLOOD COUNT 7.7 K/mm3 (4.0-10.0)
[2021-07-21 09:27] LABS: ALBUMIN 2.4 g/dl (3.4-5.0); BLOOD UREA NITROGEN 32.7 mg/dL (7-18); CALCIUM 8.5 mg/dL (8.5-10.1)
[2021-07-21 09:28] LABS: BILIRUBIN,TOTAL 0.5 mg/dL (0.2-1)
[2021-07-21 09:30] LABS: CREATININE 2.7 mg/dL (0.55-1.3); PHOSPHOROUS 3.2 mg/dL (2.5-4.9); TOT PROT 6.3 g/dl (6.4-8.2)
[2021-07-21] MEDS ORDERED: FUROSEMIDE 40 MG/4 ML INJECTABLE VIAL IVPUSH SCH (10:00)
[2021-07-21] MEDS ORDERED: PANTOPRAZOLE 40 MG TABLET PO SCH (10:00)
[2021-07-21] MEDS ORDERED: FOLIC ACID INJECTION - 1 MG, THIAMINE HCL 100 MG, MULTIVIT INJECTION ADULT 10 ML in SOD... IVPB ONE (10:14)
[2021-07-21] MEDS ORDERED: THIAMINE HCL 200 MG/2 ML VIAL IVPB ONE (11:00)
[2021-07-21] MEDS: FUROSEMIDE 40 MG/4 ML INJECTABLE VIAL IVPUSH SCH (11:17)
[2021-07-21] MEDS: THIAMINE HCL 100 MG TABLET (FP) PO SCH (11:23)
[2021-07-21] MEDS: FOLIC ACID 1 MG TABLET (FP) PO SCH (11:25)
[2021-07-21] MEDS: NICOTINE 21 MG/24 HOURS TOPICAL PATCH TD SCH (11:25)
[2021-07-21] MEDS: APIXABAN 5 MG TABLET PO SCH ×2 (11:25→21:14)
[2021-07-21] MEDS ORDERED: MELATONIN 5 MG TABLETS PO PRN (14:17)
[2021-07-21] MEDS ORDERED: ACETAMINOPHEN 325 MG TABLET (FP) PO PRN (14:18)
[2021-07-21] MEDS: LIDOCAINE PATCH REMOVAL MC SCH (22:21)
[2021-07-22] MEDS: LORazepam 1 MG TABLET PO SCH ×2 (05:09→12:25)
[2021-07-22 07:47] LABS: BASO % 1.3 % (0-2.0); EOS % 0.1 % (0-4.5); HEMATOCRIT 39.2 % (35.4-49); HEMOGLOBIN 12.7 GM/dL (11.7-16.9); LYMPH % 25.7 % (8-40); MCH 26.5 pg (25.7-33.7); MCHC 32.5 g/dl (32.0-35.9); MEAN CELL VOLUME 81.7 fl (80-96); MEAN PLT VOLUME 9.4 fl (7.5-11.1); NEUT % 61.9 % (42.8-82.8); PLATELET COUNT 294 10^3/uL (134-434); WHITE BLOOD COUNT 5.4 K/mm3 (4.0-10.0)
[2021-07-22 07:58] LABS: BLOOD UREA NITROGEN 35.7 mg/dL (7-18); CALCIUM 7.8 mg/dL (8.5-10.1)
[2021-07-22 08:01] LABS: CREATININE 2.8 mg/dL (0.55-1.3); PHOSPHOROUS 4.3 mg/dL (2.5-4.9)
[2021-07-22] MEDS: FOLIC ACID 1 MG TABLET (FP) PO SCH (09:33)
[2021-07-22] MEDS: APIXABAN 5 MG TABLET PO SCH ×2 (09:33→21:49)
[2021-07-22] MEDS: THIAMINE HCL 100 MG TABLET (FP) PO SCH (09:33)
[2021-07-22] MEDS: FUROSEMIDE 40 MG/4 ML INJECTABLE VIAL IVPUSH SCH ×2 (09:33→14:21)
[2021-07-22] MEDS: NICOTINE 21 MG/24 HOURS TOPICAL PATCH TD SCH (09:33)
[2021-07-22] MEDS ORDERED: LORazepam 1 MG TABLET PO PRN (16:11)
[2021-07-22] MEDS: CARVEDILOL 3.125 MG TABLET (FP) PO SCH ×2 (16:48→21:49)
[2021-07-22] MEDS: ATORVASTATIN CA 40 MG TABLET (FP) PO SCH (21:49)
[2021-07-22] MEDS: LIDOCAINE PATCH REMOVAL MC SCH (21:53)
[2021-07-23] MEDS ORDERED: LORazepam 0.5 MG TABLET PO PRN
[2021-07-23] MEDS ORDERED: LORazepam 0.5 MG TABLET PO SCH (05:00)
[2021-07-23 07:21] LABS: CALCIUM 8.5 mg/dL (8.5-10.1)
[2021-07-23 07:22] LABS: BLOOD UREA NITROGEN 38.6 mg/dL (7-18)
[2021-07-23 07:24] LABS: CREATININE 2.6 mg/dL (0.55-1.3); PHOSPHOROUS 4.7 mg/dL (2.5-4.9)
[2021-07-23] MEDS: FUROSEMIDE 40 MG/4 ML INJECTABLE VIAL IVPUSH SCH ×2 (08:47→14:06)
[2021-07-23] MEDS: THIAMINE HCL 100 MG TABLET (FP) PO SCH (09:08)
[2021-07-23] MEDS: FOLIC ACID 1 MG TABLET (FP) PO SCH (09:08)
[2021-07-23] MEDS: NICOTINE 21 MG/24 HOURS TOPICAL PATCH TD SCH (09:08)
[2021-07-23] MEDS: CARVEDILOL 3.125 MG TABLET (FP) PO SCH ×2 (09:09→21:32)
[2021-07-23] MEDS: APIXABAN 5 MG TABLET PO SCH ×2 (09:09→21:32)
[2021-07-23] MEDS ORDERED: LORazepam 1 MG TABLET PO PRN (18:25)
[2021-07-23] MEDS: ATORVASTATIN CA 40 MG TABLET (FP) PO SCH (21:32)
[2021-07-23] MEDS: LIDOCAINE PATCH REMOVAL MC SCH (21:34)
[2021-07-23] MEDS: ISOSORBIDE DINITRATE 20 MG TABLET PO SCH (21:34)
[2021-07-23] MEDS ORDERED: hydrALAZINE HCL 25 MG TABLET (FP) PO SCH ×2 (22:00)
[2021-07-24] MEDS ORDERED: LORazepam 0.5 MG TABLET PO ONE (05:00)
[2021-07-24] MEDS ORDERED: hydrALAZINE HCL 25 MG TABLET (FP) PO SCH (07:05)
[2021-07-24 07:10] LABS: BASO % 1.8 % (0-2.0); EOS % 0.1 % (0-4.5); HEMOGLOBIN 12.8 GM/dL (11.7-16.9); LYMPH % 29.1 % (8-40); MCH 26.6 pg (25.7-33.7); MCHC 32.8 g/dl (32.0-35.9); MEAN CELL VOLUME 80.9 fl (80-96); MONO % 11.1 % (3.8-10.2); NEUT % 57.9 % (42.8-82.8); PLATELET COUNT 279 10^3/uL (134-434); RBC 4.83 M/mm3 (4.00-5.60); RDW 15.5 % (11.9-15.9); WHITE BLOOD COUNT 5.3 K/mm3 (4.0-10.0)
[2021-07-24 07:31] LABS: CALCIUM 8.2 mg/dL (8.5-10.1)
[2021-07-24 07:32] LABS: ALBUMIN 2.3 g/dl (3.4-5.0); MAGNESIUM 1.7 mg/dL (1.8-2.4)
[2021-07-24 07:35] LABS: CREATININE 2.6 mg/dL (0.55-1.3)
[2021-07-24 07:37] LABS: BILIRUBIN,TOTAL 0.3 mg/dL (0.2-1); TOT PROT 6.3 g/dl (6.4-8.2)
[2021-07-24] MEDS: FOLIC ACID 1 MG TABLET (FP) PO SCH (09:17)
[2021-07-24] MEDS: ISOSORBIDE DINITRATE 20 MG TABLET PO SCH (09:17)
[2021-07-24] MEDS: THIAMINE HCL 100 MG TABLET (FP) PO SCH (09:18)
[2021-07-24] MEDS: NICOTINE 21 MG/24 HOURS TOPICAL PATCH TD SCH (09:18)
[2021-07-24] MEDS: CARVEDILOL 3.125 MG TABLET (FP) PO SCH (09:18)
[2021-07-24] MEDS: APIXABAN 5 MG TABLET PO SCH (09:18)
[2021-07-24] MEDS ORDERED: hydrALAZINE HCL 25 MG TABLET (FP) ONE (09:19)
[2021-07-24] MEDS ORDERED: hydrALAZINE HCL 10 MG TABLET ONE (09:19)
[2021-07-24 09:54] VITALS: BP 130/85; PULSE 74; TEMP 98.1
[2021-07-24] MEDS ORDERED: hydrALAZINE HCL 25 MG, hydrALAZINE HCL 10 MG PO SCH (10:00)
[2021-07-24] MEDS ORDERED: FUROSEMIDE 40 MG TABLET (FP) PO SCH (10:00)
== END 2021-07-24 12:30 | disposition home or self-care (01) | DRG 194 ==
LOC: JER 10:33 → JERBED 17:59 → J4W 07-21 05:34
PROVIDERS: ADMIT Internal Medicine; ATTEND Internal Medicine
PROC: HZ2ZZZZ Detoxification Services for Substance Abuse Treatment (ICD-10-PCS; principal; 2021-07-20)
DX: I13.0 Hypertensive heart and chronic kidney disease with heart failure and stage 1 through stage 4 chronic kidney disease, or unspecified chronic kidney disease (principal); I50.23 Acute on chronic systolic (congestive) heart failure; N18.30 Chronic kidney disease, stage 3 unspecified; F19.10 Other psychoactive substance abuse, uncomplicated; I48.92 Unspecified atrial flutter; N17.9 Acute kidney failure, unspecified; E05.90 Thyrotoxicosis, unspecified without thyrotoxic crisis or storm; F10.239 Alcohol dependence with withdrawal, unspecified; I48.91 Unspecified atrial fibrillation; H54.61 Unqualified visual loss, right eye, normal vision left eye; F12.10 Cannabis abuse, uncomplicated; F16.10 Hallucinogen abuse, uncomplicated; R41.82 Altered mental status, unspecified; G93.89 Other specified disorders of brain; R94.31 Abnormal electrocardiogram [ECG] [EKG]; I25.10 Atherosclerotic heart disease of native coronary artery without angina pectoris; G47.00 Insomnia, unspecified; I42.8 Other cardiomyopathies; I69.344 Monoplegia of lower limb following cerebral infarction affecting left non-dominant side
CPT/HCPCS: 36415; 70450-TC; 71045-TC-FY; 72125-TC; 76775-TC; 80048; 80053; 80061; 80307; 81003; 82140; 82550; 82553; 82803; 83036; 83735; 83880; 84100; 84439; 84443; 84484; 85025; 85610; 85730; 87086; 93005; 93010; 93306-TC; 99285-25; C9803-CS; U0003; U0005

== ENCOUNTER 2021-08-12 16:01 | Emergency (ER) | payer OTHER ==
[2021-08-12 16:24] VITALS: BP 155/98; TEMP 98; BMI 23.7
[2021-08-12] MEDS ORDERED: LORazepam 2 MG/ML SDV VIAL IVPB ONE (18:16)
[2021-08-12] MEDS ORDERED: LORazepam 2 MG/ML SDV VIAL IM ONE (18:25)
[2021-08-12 19:03] LABS: EPI CELLS 5 /uL (0-25.1); HYALINE CASTS 1 /uL (0-3.1); URINE APPEARANCE CLEAR; URINE BACTERIA 2 /uL (0-1359); URINE BILIRUBIN NEGATIVE (NEGATIVE); URINE COLOR YELLOW; URINE GLUCOSE (UA) NEGATIVE (NEGATIVE); URINE KETONE NEGATIVE (NEGATIVE); URINE LEUK ESTERASE NEGATIVE (NEGATIVE); URINE NITRITE NEGATIVE (NEGATIVE); URINE PROTEIN 3+ (NEGATIVE); URINE RBC 10 /uL (0-23.9); URINE UROBILINOGEN 0.2 mg/dL (0.2-1.0); URINE WBC 8 /uL (0-25.8)
[2021-08-12 19:12] LABS: BASO % 0.9 % (0-2.0); EOS % 2.6 % (0-4.5); HEMATOCRIT 38.6 % (35.4-49); HEMOGLOBIN 12.4 GM/dL (11.7-16.9); LYMPH % 24.7 % (8-40); MCH 25.9 pg (25.7-33.7); MCHC 32.2 g/dl (32.0-35.9); MEAN CELL VOLUME 80.3 fl (80-96); MEAN PLT VOLUME 9.5 fl (7.5-11.1); MONO % 9.7 % (3.8-10.2); NEUT % 62.1 % (42.8-82.8); PLATELET COUNT 236 10^3/uL (134-434); RDW 16.2 % (11.9-15.9); WHITE BLOOD COUNT 6.4 K/mm3 (4.0-10.0)
[2021-08-12 19:24] LABS: CHLORIDE 109 mmol/L (98-107); SODIUM 140 mmol/L (136-145)
[2021-08-12 19:27] LABS: ALBUMIN 2.9 g/dl (3.4-5.0); ANION GAP 10 MMOL/L (8-16); BLOOD UREA NITROGEN 46.2 mg/dL (7-18); CO2 21 mmol/L (21-32); GLUCOSE,RANDOM 109 mg/dL (74-106)
[2021-08-12 19:29] LABS: ACTIVATED PTT 32.2 SECONDS (25.2-36.5); INR 1.04 (0.83-1.09); SGPT/ALT 42 U/L (13-61)
[2021-08-12 19:30] LABS: SGOT/AST 28 U/L (15-37)
[2021-08-12 19:31] LABS: BILIRUBIN,TOTAL 0.2 mg/dL (0.2-1); TOT PROT 6.6 g/dl (6.4-8.2)
[2021-08-12 19:33] LABS: ALK PHOS 88 U/L (45-117)
[2021-08-12 20:07] LABS: OPIATES, URI NEGATIVE (NEGATIVE)
[2021-08-12 20:08] LABS: COCAINE, UR NEGATIVE (NEGATIVE); METHADONE, UR NEGATIVE (NEGATIVE); URINE BARBITURATES NEGATIVE (NEGATIVE); URINE BENZODIAZEPINES NEGATIVE (NEGATIVE)
[2021-08-12 20:13] LABS: PHENCYCLIDINE,URINE POSITIVE (NEGATIVE); URINE AMPHETAMINES NEGATIVE (NEGATIVE)
[2021-08-12 20:25] VITALS: PULSE 85
== END 2021-08-13 04:53 | disposition home or self-care (01) ==
LOC: JER 16:01
PROC: 3E023GC Introduction of Other Therapeutic Substance into Muscle, Percutaneous Approach (ICD-10-PCS; principal; 2021-08-12)
DX: F19.10 Other psychoactive substance abuse, uncomplicated (principal)
CPT/HCPCS: 36415; 80053; 80307; 81003; 84439; 84443; 84484; 85025; 85610; 85730; 99284-25

== ENCOUNTER 2021-08-14 22:07 | Emergency (ER) | payer OTHER ==
[2021-08-14 22:22] VITALS: BP 167/85; PULSE 88; TEMP 98.1; BMI 24.4
== END 2021-08-15 06:54 | disposition home or self-care (01) ==
LOC: JER 22:07
DX: F19.90 Other psychoactive substance use, unspecified, uncomplicated (principal)
CPT/HCPCS: 99283-25

== ENCOUNTER 2021-10-06 01:25 | Emergency (ER) | payer OTHER ==
[2021-10-06 02:25] VITALS: BP 139/96; PULSE 98; TEMP 98.3; BMI 26.7
== END 2021-10-06 05:20 | disposition home or self-care (01) ==
LOC: JER 01:25
DX: M79.673 Pain in unspecified foot (principal)
CPT/HCPCS: 99281-25

== ENCOUNTER 2021-12-12 02:12 | Emergency (ER) | payer OTHER ==
[2021-12-12 02:19] VITALS: BP 129/84; PULSE 68; RESP 16; TEMP 98.6; BMI 26.6
== END 2021-12-12 06:58 | disposition home or self-care (01) ==
LOC: JER 02:12
DX: F16.10 Hallucinogen abuse, uncomplicated (principal)
CPT/HCPCS: 99281-25